=== PATIENT | female | born 1975 | race Hispanic/Latino ===

== ENCOUNTER 2019-02-05 20:57 | Emergency (ER) | payer SELFPAY ==
[2019-02-05] MEDS ORDERED: NA CHLORIDE 0.9% 1,000 ML ONE (22:52)
[2019-02-05 23:03] LABS: Absolute Lymphocytes (CBC) 1.4 K/uL (0.7-4.9); Basophils % 0.9 % (0-1.3); Hematocrit 40.7 % (36.0-45.0); Lymphocytes % 18.2 % (15.3-44.8); MPV 7.9 fL (7.6-11.3); RBC Red Blood Cell Count 4.68 M/uL (3.86-4.86)
[2019-02-05 23:54] LABS: ALT/SGPT 32 U/L (12-78); AST/SGOT 24 U/L (15-37); Albumin 3.3 g/dL (3.4-5.0); Alkaline Phosphatase 91 U/L (45-117); BUN Blood Urea Nitrogen 20 mg/dL (7-18); Bicarbonate 28 mmol/L (21-32); Bilirubin Direct 0.1 mg/dL (0-0.2); Bilirubin Total 0.3 mg/dL (0.2-1.0); Glucose Level 134 mg/dL (74-106); Lipase 44 U/L (73-393); Potassium 3.8 mmol/L (3.5-5.1); Protein, Total 6.9 g/dL (6.4-8.2); Sodium Level 145 mmol/L (136-145); Troponin I < 0.02 ng/mL (0.0-0.045)
[2019-02-06] MEDS ORDERED: AMLODIPINE 5 MG TAB ONE (00:34)
[2019-02-06] MEDS ORDERED: cloNIDine HCl 0.1 MG TAB ONE (00:34)
--- NOTE | 2019-02-06 01:40 | EDPHYS ---
Physician Documentation [facility] Name: Liliane Villatoro Age: 43 yrs Sex: Female : 1975 Arrival Date: 02/05/2019 Time: 21:01 Bed 18 Private MD: ED Physician Miguel Yip HPI: 02/05 22:10 This 43 yrs old Female presents to ER via Ambulatory with complaints of High cp Blood Pressure, Fever. 22:10 Onset: The symptoms/episode began/occurred today. cp 22:10 Associated signs and symptoms: Pertinent negatives: chest pain, dizziness, headache, cp lightheadedness, visual changes, vomiting, weakness. Severity of symptoms: in the emergency department the blood pressure is unchanged. Patient reports taking last dose of prescribed Losartan this morning. Historical: - Allergies: : No Known Allergies; ak1 - Home Meds: :23 losartan 100 mg oral tab 1 tab once daily [Active]; Metformin Oral [Active]; ak1 - PMHx: :23 Diabetes - IDDM; Hypertension; ak1 - Immunization history:: Adult Immunizations unknown. - Social history:: Smoking status: Patient/guardian denies using tobacco. - Ebola Screening: : No symptoms or risks identified at this time. ROS: 22:15 Constitutional: Negative for body aches, chills, fever, poor PO intake. cp 22:15 Eyes: Negative for injury, pain, redness, and discharge. cp 22:15 ENT: Negative for drainage from ear(s), ear pain, sore throat, difficulty swallowing, difficulty handling secretions. 22:15 Cardiovascular: Negative for chest pain, edema, palpitations. 22:15 Respiratory: Negative for cough, shortness of breath, wheezing. 22:15 Abdomen/GI: Positive for abdominal pain, Negative for nausea, vomiting, and diarrhea, constipation, anorexia, black/tarry stool, rectal bleeding. 22:15 Back: Negative for pain at rest, pain with movement, radiated pain. 22:15 : Negative for urinary symptoms, flank pain. 22:15 Skin: Negative for cellulitis, rash. 22:15 Neuro: Negative for altered mental status, dizziness, headache, syncope, weakness. 22:15 All other systems are negative. Exam: 22:20 Constitutional: The patient appears in no acute distress, alert, awake, comfortable, cp non-diaphoretic, non-toxic, well developed, well nourished. 22:20 Head/Face: Normocephalic, atraumatic. cp 22:20 Eyes: Periorbital structures: appear normal, Conjunctiva: normal, no exudate, no injection, Sclera: no appreciated abnormality, Lids and lashes: appear normal, bilaterally. 22:20 ENT: External ear(s): are unremarkable, Ear canal(s): are normal, clear, TM's: are normal, no evidence of bulging, no erythema, Nose: is normal, Mouth: Lips: moist, Oral mucosa: pink and intact, moist, Posterior pharynx: is normal, airway is patent, no erythema, no exudate. 22:20 Neck: ROM/movement: is normal, is supple, without pain, no range of motions limitations, no nuchal rigidity. 22:20 Chest/axilla: Inspection: normal, Palpation: is normal, no crepitus, no tenderness. 22:20 Cardiovascular: Rate: normal, Rhythm: regular, Edema: is not appreciated, JVD: is not appreciated. 22:20 Respiratory: the patient does not display signs of respiratory distress, Respirations: normal, no use of accessory muscles, no retractions, no splinting, no tachypnea, labored breathing, is not present, Breath sounds: are clear throughout, no decreased breath sounds, no stridor, no wheezing. 22:20 Back: pain, is absent, ROM is normal. 22:20 Skin: no rash present. 22:20 Neuro: Orientation: to person, place \T\ time. Mentation: is normal, Cerebellar function: is grossly normal, Motor: moves all fours, strength is normal, Sensation: is normal. 22:20 Abdomen/GI: Inspection: abdomen appears normal, Bowel sounds: active, all quadrants, cp Palpation: soft, in all quadrants, mild abdominal tenderness, in the epigastric area and left upper quadrant, rebound tenderness, is not appreciated, voluntary guarding, is not appreciated. 23:00 ECG was reviewed by the Attending Physician. cp Vital Signs: 21:23 BP 188 / 102; Pulse 81; Resp 16; Temp 97.6; Pulse Ox 100% on R/A; Weight 99.79 kg (R); ak1 Height 4 ft. 11 in. (149.86 cm) (R); Pain 3/10; 21:47 BP 187 / 71; Pulse 83; Resp 18; Pulse Ox 99% on R/A; lp1 22:30 BP 173 / 76; Pulse 79; Resp 14; Pulse Ox 100% on R/A; lp1 23:30 BP 187 / 77; Pulse 76; Resp 14; Pulse Ox 100% on R/A; lp1 02/06 00:07 BP 206 / 68; Pulse 75; Resp 20; Pulse Ox 100% on R/A; lp1 00:45 BP 186 / 83; Pulse 80; Resp 14; Pulse Ox 100% on R/A; lp1 01:30 BP 123 / 59; Pulse 67; Resp 17; Pulse Ox 99% on R/A; lp1 01:59 BP 107 / 54; Pulse 65; Resp 14; Pulse Ox 100% on R/A; Pain 0/10; lp1 02/05 21:23 Body Mass Index 44.43 (99.79 kg, 149.86 cm) ak1 MDM: 02/05 21:53 Patient medically screened. rishi 22:15 Differential diagnosis: hypertensive crisis, Malignant HTN, CVA, intracerebral cp hemorrhage, cardiac arrythmia. 02/06 01:38 Data reviewed: vital signs, nurses notes, lab test result(s), EKG, radiologic studies, cp ultrasound. 01:38 Test interpretation: by ED physician or midlevel provider: ECG. Counseling: I had a cp detailed discussion with the patient and/or guardian regarding: the historical points, exam findings, and any diagnostic results supporting the discharge/admit diagnosis, the presence of at least one elevated blood pressure reading (>120/80) during this emergency department visit, lab results, radiology results, the need for outpatient follow up, a family practitioner, to return to the emergency department if symptoms worsen or persist or if there are any questions or concerns that arise at home. Response to treatment: the patient's symptoms have markedly improved after treatment, VSS. Blood pressure improved. Will discharge to home for continued monitoring. Special discussion: I have referred the patient to see his PCP for further evaluation of high blood pressure. 02/05 21:49 Order name: Urine Dipstick--Ancillary (enter results); Complete Time: 00:15 cm6 02/05 21:49 Order name: Urine --Ancillary (enter results); Complete Time: 00:15 cm6 02/05 22:05 Order name: Basic Metabolic Panel; Complete Time: 00:17 cp 02/06 00:17 Interpretation: Normal except: CL 112; GLUC 134; BUN 20; GFR 64. cp 02/05 22:05 Order name: CBC with Diff; Complete Time: 00:17 cp 02/05 22:05 Order name: Creatinine for Radiology; Complete Time: 00:17 cp 02/05 22:05 Order name: Hepatic Function; Complete Time: 00:17 cp 02/05 21:48 Order name: Urine Dipstick-Ancillary (obtain specimen); Complete Time: 21:48 cm6 02/05 22:05 Order name: Lipase; Complete Time: 00:17 cp 02/05 22:05 Order name: US Abdomen Limited: RUQ/epigastric pain; Complete Time: 00:15 cp 02/05 22:05 Order name: EKG; Complete Time: 22:06 cp 02/05 22:05 Order name: Troponin I; Complete Time: 00:17 cp 02/05 21:48 Order name: Urine Test (obtain specimen); Complete Time: 21:48 cm6 02/05 22:05 Order name: IV Saline Lock; Complete Time: 22:35 cp 02/05 22:05 Order name: Labs collected and sent; Complete Time: 22:34 cp 02/05 22:05 Order name: NPO; Complete Time: 22:23 cp 02/05 22:05 Order name: EKG - Nurse/Tech; Complete Time: 22:51 cp EC/21 23:00 Rate is 72 beats/min. Rhythm is regular. MI interval is normal. QRS interval is normal. cp QT interval is normal. Interpreted by me. Reviewed by me. Administered Medications: 23:04 Drug: NS 0.9% 1000 ml Route: IV; Rate: 1 bolus; Site: right antecubital; lp1 02/06 00:38 Follow up: IV Status: Completed infusion; IV Intake: 1000ml lp1 00:38 Drug: cloNIDine 0.2 mg Route: PO; lp1 02:00 Follow up: Response: Marked relief of symptoms lp1 00:38 Drug: Norvasc 5 mg Route: PO; lp1 02:00 Follow up: Response: Marked relief of symptoms lp1 Disposition: 07:43 Co-signature as Attending Physician, Miguel Yip MD I agree with the assessment and rishi plan of care. Disposition: 02/06/19 01:39 Discharged to Home. Impression: Hypertensive heart disease. - Condition is Stable. - Discharge Instructions: How to Take Your Blood Pressure, [id number], Managing Your Hypertension. - Prescriptions for losartan 100 mg Oral tablet - take 1 tablet by ORAL route once daily; 30 tablet. Norvasc 5 mg Oral Tablet - take 1 tablet by ORAL route once daily; 30 tablet. - Medication Reconciliation Form, Thank You Letter, Antibiotic Education, Prescription Opioid Use form. - Follow up: Private Physician; When: 2 - 3 days; Reason: Recheck today's complaints. - Problem is chronic. - Symptoms have improved. Signatures: Dispatcher [employer] EDMS Miguel Yip MD MD cha Pena, Laura, RN RN lp1 Tabitha Pack RN RN ak1 Miguel Pat PA PA Angela Nayak cm6 Corrections: (The following items were deleted from the chart) 02:00 01:39 02/06/2019 01:39 Discharged to Home. Impression: Hypertensive heart disease. lp1 Condition is Stable. Forms are Medication Reconciliation Form, Thank You Letter, Antibiotic Education, Prescription Opioid Use. Follow up: Private Physician; When: 2 - 3 days; Reason: Recheck today's complaints. Problem is chronic. Symptoms have improved. cp 02/07 00:21 02/05 22:20 Abdomen/GI: Inspection: abdomen appears normal, Bowel sounds: active, all cp quadrants, Palpation: abdomen is soft and non-tender, in all quadrants, cp
--- NOTE | 2019-02-06 01:40 | ER ---
Nurse's Notes [facility] Name: Liliane Villatoro Age: 43 yrs Sex: Female : 1975 Arrival Date: 02/05/2019 Time: 21:01 Bed 18 Private MD: Diagnosis: Hypertensive heart disease Presentation: 02/05 21:21 Presenting complaint: Patient states: out of BP meds, took last one this morning. pt ak1 stated fever since today. pt c/o abd pain and swelling X1 week. Transition of care: patient was not received from another setting of care. Onset of symptoms is unknown. Risk Assessment: Do you want to hurt yourself or someone else? Patient reports no desire to harm self or others. Initial Sepsis Screen: Does the patient meet any 2 criteria? No. Patient's initial sepsis screen is negative. Does the patient have a suspected source of infection? No. Patient's initial sepsis screen is negative. Care prior to arrival: None. 21:21 Method Of Arrival: Ambulatory ak1 21:21 Acuity: [place] 3 ak1 Triage Assessment: 21:23 General: Appears in no apparent distress. Behavior is cooperative. ak1 Historical: - Allergies: 21:23 No Known Allergies; ak1 - Home Meds: 21:23 losartan 100 mg oral tab 1 tab once daily [Active]; Metformin Oral [Active]; ak1 - PMHx: 21:23 Diabetes - IDDM; Hypertension; ak1 - Immunization history:: Adult Immunizations unknown. - Social history:: Smoking status: Patient/guardian denies using tobacco. - Ebola Screening: : No symptoms or risks identified at this time. Screenin:31 Abuse screen: Denies threats or abuse. Denies injuries from another. Nutritional lp1 screening: No deficits noted. Tuberculosis screening: No symptoms or risk factors identified. Fall Risk None identified. Assessment: 21:30 General: Appears in no apparent distress. Behavior is calm, cooperative, appropriate lp1 for age. Pain: Complains of pain in left upper quadrant Pain currently is 7 out of 10 on a pain scale. Quality of pain is described as sharp. Neuro: Level of Consciousness is awake, alert, obeys commands, Oriented to person, place, time, situation. Cardiovascular: Patient's skin is warm and dry. Respiratory: Respiratory effort is even, unlabored, Breath sounds are clear bilaterally. GI: Abdomen is non-distended, Bowel sounds present X 4 quads. Abdomen is tender to palpation in left upper quadrant Patient currently denies diarrhea, nausea, vomiting. : Denies burning with urination. EENT: No signs and/or symptoms were reported regarding the EENT system. Derm: Skin is pink, warm \T\ dry. Musculoskeletal: No deficits noted. 22:23 Reassessment: Ultrasound completed at bedside at this time. lp1 22:48 Reassessment: Patient aware of NPO status at this time. lp1 23:45 Reassessment: Patient appears in no apparent distress at this time. Patient ambulated lp1 to bathroom at this time. 02/06 01:30 Reassessment: Patient appears in no apparent distress at this time. Patient is alert, lp1 oriented x 3, equal unlabored respirations, skin warm/dry/pink. Patient states feeling better. Pain: Denies pain. Neuro: Gait is steady. Vital Signs: 02/05 21:23 BP 188 / 102; Pulse 81; Resp 16; Temp 97.6; Pulse Ox 100% on R/A; Weight 99.79 kg (R); ak1 Height 4 ft. 11 in. (149.86 cm) (R); Pain 3/10; 21:47 BP 187 / 71; Pulse 83; Resp 18; Pulse Ox 99% on R/A; lp1 22:30 BP 173 / 76; Pulse 79; Resp 14; Pulse Ox 100% on R/A; lp1 23:30 BP 187 / 77; Pulse 76; Resp 14; Pulse Ox 100% on R/A; lp1 02/06 00:07 BP 206 / 68; Pulse 75; Resp 20; Pulse Ox 100% on R/A; lp1 00:45 BP 186 / 83; Pulse 80; Resp 14; Pulse Ox 100% on R/A; lp1 01:30 BP 123 / 59; Pulse 67; Resp 17; Pulse Ox 99% on R/A; lp1 01:59 BP 107 / 54; Pulse 65; Resp 14; Pulse Ox 100% on R/A; Pain 0/10; lp1 02/05 21:23 Body Mass Index 44.43 (99.79 kg, 149.86 cm) [facility] ED Course: 02/05 21:01 Patient arrived in ED. es 21:22 Triage completed. ak1 21:23 Arm band placed on Patient placed in an exam room, on a stretcher, Patient notified of ak1 wait time. 21:29 Consuelo Hilliard, RN is Primary Nurse. lp1 21:32 Patient has correct armband on for positive identification. lp1 21:50 Miguel Pat PA is PHCP. cp 21:50 Miguel Yip MD is Attending Physician. cp 22:30 Inserted saline lock: 22 gauge in right antecubital area, using aseptic technique. lp1 Blood collected. 22:33 US Abdomen Limited: RUQ/epigastric pain In Process Unspecified. EDMS 02/06 00:08 No provider procedures requiring assistance completed. lp1 01:59 IV discontinued, bleeding controlled, No redness/swelling at site. Pressure dressing lp1 applied. Administered Medications: 02/05 23:04 Drug: NS 0.9% 1000 ml Route: IV; Rate: 1 bolus; Site: right antecubital; lp1 02/06 00:38 Follow up: IV Status: Completed infusion; IV Intake: 1000ml lp1 00:38 Drug: cloNIDine 0.2 mg Route: PO; lp1 02:00 Follow up: Response: Marked relief of symptoms lp1 00:38 Drug: Norvasc 5 mg Route: PO; lp1 02:00 Follow up: Response: Marked relief of symptoms lp1 Intake: 00:38 IV: 1000ml; Total: 1000ml. lp1 Outcome: 01:39 Discharge ordered by MD. cp 01:59 Discharged to home ambulatory, with family. lp1 01:59 Condition: good 01:59 Discharge instructions given to patient, Instructed on discharge instructions, follow up and referral plans. medication usage, Demonstrated understanding of instructions, follow-up care, medications, Prescriptions given X 2. 02:00 Patient left the ED. lp1 Signatures: Dispatcher [employer] EDOH Suzanna Brown Laura, RN RN lp1 Tabitha Pack RN RN ak1 Miguel Pat PA PA cp Corrections: (The following items were deleted from the chart) 02/05 21:24 21:21 Presenting complaint: Patient states: out of BP meds since October 2018. pt stated ak1 fever since today. pt c/o abd pain and swelling X1 week. ak1
[2019-02-06 02:09] VITALS: TEMP 97.6
[2019-02-06 02:17] VITALS: BP 107/54; O2SAT 100
[2019-02-06 03:42] LABS: Urine Blood TRACE (NEG); Urine Glucose NEGATIVE (NEG); Urine Protein NEGATIVE (NEG); Urine pH 6.5 (5.0-7.0)
--- NOTE | 2019-02-06 06:49 | RAD REPORT ---
EXAM DESCRIPTION: US - Abdomen Exam Limited - 02/05/2019 10:33 pm CLINICAL HISTORY: ABD PAIN COMPARISON: ABDOMINAL EXAM LIMITED dated 10/09/2013 FINDINGS: Patient was not fully fasting for the examination. Gallbladder is only partially filled. B evelia habitus also contributed to limited visualization. No gallstones, sludge or other abnormalities within the gallbladder lumen. There is no wall thickenin g or pericholecystic fluid. No common duct stone or biliary tree dilatation identified. IMPRESSION: Exam is considered limited. However, no gallbladder or biliary tree abnormality was iden tifiable.
--- NOTE | 2019-02-06 12:11 | EKG ---
Test Date: 2019-02-05 Test Time: 22:51:47 Scalping Machine Operator: RENNY MEASUREMENT RESULTS: Intervals: Rate: 72 NH: 144 QRSD: 84 QT: 420 QTc: 459 Worth: P: 48 NH: 144 QRS: 58 T: 79 INTERPRETIVE STATEMENTS: Normal sinus rhythm Nonspecific ST abnormality Abnormal ECG Compared to ECG 08/26/2015 19:48:45 ST (T wave) deviation now present Electronically Signed On 02-06-19 12:09:06 CDT by Nicolas Love
== END 2019-02-06 02:00 | disposition home or self-care (01) ==
LOC: ER 20:57
DX: I11.9 Hypertensive heart disease without heart failure (principal); E11.9 Type 2 diabetes mellitus without complications; I10 Essential (primary) hypertension
CPT/HCPCS: 36415; 76705; 80048; 80076; 81003; 81025; 83690; 84484; 85025; 93005; 96360; 96361; 99284; J7030

== ENCOUNTER 2020-07-13 09:14 | Emergency (ER) | payer SELFPAY ==
[2020-07-13] MEDS ORDERED: LIDOCAINE 1% MPF 5 ML VIAL ONE (09:59)
--- NOTE | 2020-07-13 10:16 | ER ---
Nurse's Notes [facility] Name: Liliane Villatoro Age: 45 yrs Sex: Female : 1975 Arrival Date: 07/13/2020 Time: 09:17 Bed 7 Private MD: Diagnosis: Cutaneous abscess of chest wall Presentation: 07/13 09:27 Chief complaint: Patient states: she had a sextuplet bypass surgery in Apr [address] [facility] and has had issues with her midsternal incision healing. Sister is currently packing her wound daily with prescription solution but has no more solution and they are having a difficult time getting her a new MD. Pt reports about 2 weeks ago an area noted on the top of her incision started growing like an abscess and wants to get it checked. Coronavirus screen: Client denies travel out of the [place] in the last 14 days. At this time, the client does not indicate any symptoms associated with coronavirus-19. Ebola Screen: No symptoms or risks identified at this time. Initial Sepsis Screen: Does the patient meet any 2 criteria? No. Patient's initial sepsis screen is negative. Does the patient have a suspected source of infection? No. Patient's initial sepsis screen is negative. Risk Assessment: Do you want to hurt yourself or someone else? Patient reports no desire to harm self or others. Onset of symptoms was June 2020. 09:27 Method Of Arrival: Ambulatory 09:27 Acuity: [place] 3 MANAGER HEMATOLOGY: 10:26 "never had 1 all her my life" ca1 Historical: - Allergies: : No Known Allergies; sv - PMHx: :31 Diabetes - IDDM; Hypertension; - PSHx: 09:31 Sextuplet bypass; sv - Immunization history:: Client reports receiving the 2nd dose of the Covid vaccine, Client reports receiving the 1st dose of the Covid vaccine. - Social history:: Smoking status: Patient denies any tobacco usage or history of. Screenin:20 Abuse screen: Denies threats or abuse. Denies injuries from another. Nutritional ca1 screening: No deficits noted. Tuberculosis screening: No symptoms or risk factors identified. Fall Risk None identified. Assessment: 09:20 General: Appears in no apparent distress. comfortable, Behavior is calm, cooperative, ca1 appropriate for age. Pain: Complains of pain in mid-sternal area. Neuro: Level of Consciousness is awake, alert, obeys commands, Oriented to person, place, time, situation. Derm: Skin is healthy with good turgor, Skin is pink, warm \\T\\ dry. Abscess located on mid-sternal area is quarter sized, has clear drainage, is raised. Musculoskeletal: Circulation, motion, and sensation intact. Capillary refill < 3 seconds. 10:18 Reassessment: Patient appears in no apparent distress at this time. Patient and/or ca1 family updated on plan of care and expected duration. Pain level reassessed. Patient is alert, oriented x 3, equal unlabored respirations, skin warm/dry/pink. Vital Signs: 09:27 BP 171 / 83; Pulse 89; Resp 16; Temp 98.9; Pulse Ox 100% ; Weight 77.56 kg; Height 4 sv ft. 11 in. (149.86 cm); 10:18 BP 145 / 78; Pulse 79; Resp 16 S; Pulse Ox 100% on R/A; ca1 09:27 Body Mass Index 34.54 (77.56 kg, 149.86 cm) sv ED Course: 09:17 Patient arrived in ED. rg4 09:18 Sebastien Sanford NP is PHCP. pm1 09:18 Carlyle Nath MD is Attending Physician. pm1 09:20 Patient has correct armband on for positive identification. Bed in low position. Call ca1 light in reach. Side rails up X 1. Pulse ox on. NIBP on. 09:27 Brook Whitt, ABNER is Primary Nurse. ca1 09:30 Triage completed. sv 09:31 Arm band placed on. sv 09:59 Wound Culture Sent. ca1 09:59 Assist provider with I \\T\\ D: of an abscess on upper sternal region Set up I\\T\\D tray. ca 1 Performed by Sebastien Sanford NP Culture sent to lab. Wound packed. iodoform gauze, Dressing with 4X4s, tape Patient tolerated well. 10:17 Felix Perrin MD is Referral Physician. pm1 10:25 Patient did not have IV access during this emergency room visit. ca1 Administered Medications: 09:59 Drug: Lidocaine (1 %) 5 ml {Note: by WIN Crowe.} Volume: 5 ml; Route: Infiltration; ca1 Outcome: 10:16 Discharge ordered by . pm1 10:25 Discharged to home ambulatory. ca1 10:25 Condition: improved 10:25 Discharge instructions given to patient, Instructed on discharge instructions, follow up and referral plans. medication usage, wound care, Demonstrated understanding of instructions, follow-up care, medications, wound care, Prescriptions given X 1. 10:26 Patient left the ED. ca1 Addendum: 07/16/2020 18:50 Addendum: Culture Results: Positive wound culture. Phone call Attempt #1 No answer. Not s s a working number. Signatures: Vicki Silverman, RN RN sv Jennifer Pollock RN RN ss Sebastien Sanford, RADAR OPERATOR RADAR OPERATOR pm1 Radhika Garcia rg4 Brook Whitt RN RN ca1
--- NOTE | 2020-07-13 10:16 | EDPHYS ---
Physician Documentation [facility] Name: Liliane Villatoro Age: 45 yrs Sex: Female : 1975 Arrival Date: 07/13/2020 Time: 09:17 Bed 7 Private MD: ED Physician Carlyle Nath HPI: 07/13 10:05 This 45 yrs old Female presents to ER via Ambulatory with complaints of pm1 Abscess. 10:05 The patient presents with an abscess of the mid-sternal area. Description: The affected pm1 area is approximately 2 cm(s), circular, draining, raised. Onset: The symptoms/episode began/occurred 2 week(s) ago. Possible cause(s): unknown. Associated signs and symptoms: Pertinent negatives: fever, pain. Modifying factors: the symptoms are alleviated by nothing, the symptoms are aggravated by nothing. Severity of symptoms: in the emergency department the symptoms are actually worse. The patient has not recently seen a physician, Just moved to the area. Patient has been contacting wound care but has not been able to establish an appointment. 10:05 Patient with bypass x 6 in April. Reports surgical chest scar was healing well until pm1 dehiscence at the distal aspect of the scar that has lead to chronic wound for 2 months. That is not the patient's current complaint. For the past two week she has had an abscess forming that is draining clear fluid at the proximal aspect of the scar. No fevers, chest pain, or shortness of breath. 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 - Social history:: Smoking status: Patient denies any tobacco usage or history of. ROS: 10:05 Constitutional: Negative for fever, chills, and weight loss. pm1 10:05 Cardiovascular: Negative for chest pain, palpitations, and edema, Respiratory: Negative for shortness of breath, cough, wheezing, and pleuritic chest pain, Abdomen/GI: Negative for abdominal pain, nausea, vomiting, diarrhea, and constipation, MS/Extremity: Negative for injury and deformity, Neuro: Negative for headache, weakness, numbness, tingling, and seizure. 10:05 Skin: Positive for abscess, of the mid-sternal area. Exam: 07/12 10:05 Constitutional: This is a well developed, well nourished patient who is awake, alert, pm1 and in no acute distress. Head/Face: Normocephalic, atraumatic. Chest/axilla: Inspection: abscess, that is small, of the mid-sternal area cellulitis, is not appreciated, chronic wound present to distal aspect of scar without any signs of cellulitis or abscess. Cardiovascular: Exam negative for acute changes, Rate: normal, Rhythm: regular, Pulses: no pulse deficits are appreciated, Edema: is not appreciated. Respiratory: Exam negative for acute changes, respiratory distress, shortness of breath. Skin: Appearance: normal except for affected area, as noted on chest examination. Neuro: Exam negative for acute changes, Orientation: is normal, Mentation: is normal, Motor: is normal, moves all fours. Vital Signs: 07/13 09:27 BP 171 / 83; Pulse 89; Resp 16; Temp 98.9; Pulse Ox 100% ; Weight 77.56 kg; Height 4 sv ft. 11 in. (149.86 cm); 10:18 BP 145 / 78; Pulse 79; Resp 16 S; Pulse Ox 100% on R/A; ca1 09:27 Body Mass Index 34.54 (77.56 kg, 149.86 cm) sv Procedures: 10:05 I \\T\\ D: Incision and drainage was performed for an abscess of the mid-sternal area pm1 Prepped with Betadine, Anesthetized with 2 ml's 1% Lidocaine. Incised with #11 blade. Drained small amount Clear Cultures obtained. Abscess cavity explored. Packed with iodoform gauze, Dressing: sterile 4x4 gauze, the patient tolerated the procedure well. MDM: 09:22 Patient medically screened. pm1 10:05 Data reviewed: vital signs. Data interpreted: Pulse oximetry: on room air is 100 %. pm1 Interpretation: normal. Counseling: I had a detailed discussion with the patient and/or guardian regarding: the historical points, exam findings, and any diagnostic results supporting the discharge/admit diagnosis, the need for outpatient follow up, for definitive care, a family practitioner, wound care center, to return to the emergency department if symptoms worsen or persist or if there are any questions or concerns that arise at home. 07/13 09:38 Order name: Wound Culture pm1 07/13 09:34 Order name: Incision \\T\\ Drainage Setup; Complete Time: 09:39 pm1 Administered Medications: 09:59 Drug: Lidocaine (1 %) 5 ml {Note: by WIN Crowe.} Volume: 5 ml; Route: Infiltration; ca1 Disposition: 10:42 Co-signature as Attending Physician, Carlyle Nath MD. rn Disposition: 07/13/20 10:16 Discharged to Home. Impression: Cutaneous abscess of chest wall. - Condition is Stable. - Discharge Instructions: Skin Abscess, Incision and Drainage. - Prescriptions for Doxycycline Hyclate 100 mg Oral Tablet - take 1 tablet by ORAL route every 12 hours; 20 tablet. - Medication Reconciliation Form, Thank You Letter, Antibiotic Education, Prescription Opioid Use form. - Follow up: Emergency Department; When: As needed; Reason: Worsening of condition. Follow up: Private Physician; When: 2 - 3 days; Reason: Recheck today's complaints, Continuance of care, Re-evaluation by your physician. Follow up: Felix Perrin MD; When: 2 - 3 days; Reason: Recheck today's complaints, Continuance of care, Re-evaluation by your physician. - Problem is new. - Symptoms have improved. Signatures: Dispatcher [employer] Vicki Woodall RN RN Carlyle Nath MD MD rn Marinas, Patrick, NP [employer] OPERATOR pm1 Brook Whitt RN RN ca1 Corrections: (The following items were deleted from the chart) 10:18 10:16 07/13/2020 10:16 Discharged to Home. Impression: Cutaneous abscess of chest wall. pm1 Condition is Stable. Forms are Medication Reconciliation Form, Thank You Letter, Antibiotic Education, Prescription Opioid Use. Follow up: Emergency Department; When: As needed; Reason: Worsening of condition. Follow up: Private Physician; When: 2 - 3 days; Reason: Recheck today's complaints, Continuance of care, Re-evaluation by your physician. Problem is new. Symptoms have improved. pm1 10:26 10:18 07/13/2020 10:16 Discharged to Home. Impression: Cutaneous abscess of chest wall. ca1 Condition is Stable. Discharge Instructions: Skin Abscess, Incision and Drainage. Prescriptions for Doxycycline Hyclate 100 mg Oral Tablet - take 1 tablet by ORAL route every 12 hours; 20 tablet. and Forms are Medication Reconciliation Form, Thank You Letter, Antibiotic Education, Prescription Opioid Use. Follow up: Emergency Department; When: As needed; Reason: Worsening of condition. Follow up: Private Physician; When: 2 - 3 days; Reason: Recheck today's complaints, Continuance of care, Re-evaluation by your physician. Follow up: Felix Perrin; When: 2 - 3 days; Reason: Recheck today's complaints, Continuance of care, Re-evaluation by your physician. Problem is new. Symptoms have improved. pm1
[2020-07-13 10:31] VITALS: TEMP 98.9; O2SAT 100
[2020-07-13 10:32] VITALS: BP 145/78
== END 2020-07-13 10:26 | disposition home or self-care (01) ==
LOC: ER 09:14
PROC: 0J960ZZ Drainage of Chest Subcutaneous Tissue and Fascia, Open Approach (ICD-10-PCS; principal; 2020-07-13)
DX: L02.213 Cutaneous abscess of chest wall (principal); I10 Essential (primary) hypertension; Z95.1 Presence of aortocoronary bypass graft
CPT/HCPCS: 87070; 87077; 87186; 87205; 99284

== ENCOUNTER 2020-08-13 12:50 | Emergency (ER) | payer SELFPAY ==
[2020-08-13 13:11] LABS: Absolute Lymphocytes (CBC) 1.1 K/uL (0.7-4.9); Basophils % 0.4 % (0-1.3); Hematocrit 28.7 % (36.0-45.0); Lymphocytes % 8.6 % (15.3-44.8); MPV 7.2 fL (7.6-11.3); RBC Red Blood Cell Count 3.52 M/uL (3.86-4.86)
[2020-08-13 13:18] LABS: Protime INR 1.4
[2020-08-13 13:32] LABS: ALT/SGPT 13 U/L (12-78); AST/SGOT 8 U/L (15-37); Alkaline Phosphatase 106 U/L (45-117); BUN Blood Urea Nitrogen 15 mg/dL (7-18); Bicarbonate 25 mmol/L (21-32); Bilirubin Direct 0.3 mg/dL (0-0.2); Bilirubin Total 0.9 mg/dL (0.2-1.0); Glucose Level 205 mg/dL (74-106); Magnesium 2.2 mg/dL (1.8-2.4); NT PRO-BNP 1605 pg/mL (<125); Potassium 4.2 mmol/L (3.5-5.1); Protein, Total 8.3 g/dL (6.4-8.2); Sodium Level 134 mmol/L (136-145); Troponin (Emerg Dept Use Only) < 0.02 ng/mL (0.0-0.045)
--- NOTE | 2020-08-13 14:00 | RAD REPORT ---
EXAM DESCRIPTION: RAD - Chest Single View - 08/13/2020 1:51 pm CLINICAL HISTORY: CHEST PAIN Chest pain. COMPARISON: Chest Single View dated 08/26/2015; CHEST PA AND LAT 2 VIEW dated 05/24/2010 FINDINGS: Portable technique limits examination quality. The lungs are grossly clear. The heart is normal in size. No displaced fractures.Sternotomy wires. IMPRESSION: No acute intrathoracic process suspected.
[2020-08-13] MEDS ORDERED: CLOPIDOGREL 75 MG TABLET ONE (14:04)
[2020-08-13] MEDS ORDERED: ASPIRIN 81 MG CHEWABLE TABLET ONE (14:04)
--- NOTE | 2020-08-13 14:30 | EDPHYS ---
Physician Documentation [facility] Name: Liliane Villatoro Age: 45 yrs Sex: Female : 1975 Arrival Date: 08/13/2020 Time: 12:55 Bed 2 Private MD: ED Physician Girish Jules HPI: 08/13 13:40 This 45 yrs old Female presents to ER via EMS with complaints of Chest Pain. jr8 13:40 The patient or guardian reports chest pain that is located primarily in the anterior jr8 chest wall, left. Onset: acutely. The pain radiates to the left arm. Associated signs and symptoms: The patient has no apparent associated signs or symptoms. The chest pain is described as sharp. Duration: The patient or guardian reports multiple episodes, that are intermittent. Modifying factors: The symptoms are alleviated by nothing. the symptoms are aggravated by movement, palpation of area. Severity of pain: At its worst the pain was moderate in the emergency department the pain is unchanged. The patient has not experienced similar symptoms in the past. The patient has not recently seen a physician. Patient stated that she had sextuplet bypass about 3 months ago. Has been recovering from procedure well thus far. Stated that she now is having sharp chest pain to upper left chest region that is reproducible with palpation and movement of arm. Did not know if she strained herself or not. Has not been compliant with her cardiac meds. Historical: - Allergies: 12:57 No Known Allergies; sv - Home Meds: 13:12 Metformin Oral [Active]; losartan 100 mg Oral tab 1 tab once daily [Active]; vg1 - PMHx: 12:57 Diabetes - IDDM; Hypertension; sv - PSHx: 12:57 Sextuplet bypass; sv - Immunization history:: Adult Immunizations up to date, Client reports receiving the 2nd dose of the Covid vaccine. - Social history:: Smoking status: Patient/guardian denies using tobacco. ROS: 13:40 Eyes: Negative for injury, pain, redness, and discharge, ENT: Negative for injury, jr8 pain, and discharge, Neck: Negative for injury, pain, and swelling, Respiratory: Negative for shortness of breath, cough, wheezing, and pleuritic chest pain, Abdomen/GI: Negative for abdominal pain, nausea, vomiting, diarrhea, and constipation, Back: Negative for injury and pain, MS/Extremity: Negative for injury and deformity, Skin: Negative for injury, rash, and discoloration, Neuro: Negative for headache, weakness, numbness, tingling, and seizure. 13:40 Cardiovascular: Positive for chest pain, with movement, Negative for edema, orthopnea, palpitations, paroxysmal nocturnal dyspnea. Exam: 13:40 Constitutional: This is a well developed, well nourished patient who is awake, alert, jr8 and in no acute distress. Cardiovascular: Regular rate and rhythm with a normal S1 and S2. No gallops, murmurs, or rubs. Normal PMI, no JVD. No pulse deficits. Respiratory: Lungs have equal breath sounds bilaterally, clear to auscultation and percussion. No rales, rhonchi or wheezes noted. No increased work of breathing, no retractions or nasal flaring. Abdomen/GI: Soft, non-tender, with normal bowel sounds. No distension or tympany. No guarding or rebound. No evidence of tenderness throughout. Skin: Warm, dry with normal turgor. Normal color with no rashes, no lesions, and no evidence of cellulitis. MS/ Extremity: Pulses equal, no cyanosis. Neurovascular intact. Full, normal range of motion. Neuro: Awake and alert, GCS 15, oriented to person, place, time, and situation. Cranial nerves II-XII grossly intact. Motor strength 5/5 in all extremities. Sensory grossly intact. Cerebellar exam normal. Normal gait. 13:40 Chest/axilla: Inspection: mid sternal scar noted. Healing well and without erythema, Palpation: tenderness, that is moderate, of the anterior aspect of left upper chest, that totally reproduces the patient's complaints. Vital Signs: 13:08 BP 169 / 97; Pulse 96; Resp 18; Temp 98.1(O); Pulse Ox 100% on R/A; Weight 72.57 kg; vg1 Height 4 ft. 11 in. (149.86 cm); Pain 10/10; 14:06 BP 150 / 74; Pulse 94; Resp 20; Pulse Ox 100% ; sv 14:56 BP 129 / 67; Pulse 80; Resp 16; Pulse Ox 100% on R/A; vg1 13:08 Body Mass Index 32.32 (72.57 kg, 149.86 cm) vg1 MDM: 13:06 Patient medically screened. jr8 14:30 Data reviewed: vital signs, nurses notes, lab test result(s), EKG, radiologic studies, jr8 plain films. Data interpreted: Pulse oximetry: on room air is 100 %. Interpretation: normal. Counseling: I had a detailed discussion with the patient and/or guardian regarding: the historical points, exam findings, and any diagnostic results supporting the discharge/admit diagnosis, lab results, radiology results, the need for outpatient follow up, a counter supervisor, a family practitioner, to return to the emergency department if symptoms worsen or persist or if there are any questions or concerns that arise at home. 08/13 12:56 Order name: Basic Metabolic Panel; Complete Time: 13:43 sv 08/13 12:56 Order name: CBC with Diff; Complete Time: 13:08/13 12:56 Order name: LFT's; Complete Time: 13:43 08/13 12:56 Order name: Magnesium; Complete Time: 13:08/13 12:56 Order name: NT PRO-BNP; Complete Time: 13:43 08/13 12:56 Order name: PT-INR; Complete Time: 13:43 sv 08/13 12:56 Order name: Troponin (emerg Dept Use Only); Complete Time: 13:43 08/13 12:56 Order name: XRAY Chest (1 view); Complete Time: 14:12 08/13 12:56 Order name: EKG; Complete Time: 12:56 sv 08/13 12:56 Order name: Cardiac monitoring; Complete Time: 12:56 08/13 12:56 Order name: EKG - Nurse/Tech; Complete Time: 12:56 sv 08/13 12:56 Order name: IV Saline Lock; Complete Time: 13:08/13 12:56 Order name: Labs collected and sent; Complete Time: 13:08/13 12:56 Order name: O2 Per Protocol; Complete Time: 12:56 08/13 12:56 Order name: O2 Sat Monitoring; Complete Time: 12:56 sv Administered Medications: 13:48 Drug: Aspirin 81 mg Route: PO; vg1 14:56 Follow up: Response: No adverse reaction vg1 13:48 Drug: PlaVIX (clopidogrel) 75 mg Route: PO; vg1 14:56 Follow up: Response: No adverse reaction vg1 Disposition: 08/14 06:23 Co-signature as Attending Physician, Girish Jules MD I agree with the assessment and kdr plan of care. Disposition: 08/13/20 14:29 Discharged to Home. Impression: Other chest pain. - Condition is Stable. - Discharge Instructions: Chest Wall Pain. - Medication Reconciliation Form, Thank You Letter, Antibiotic Education, Prescription Opioid Use, Work release form form. - Follow up: Private Physician; When: 2 - 3 days; Reason: Recheck today's complaints, Continuance of care, Re-evaluation by your physician. - Problem is new. - Symptoms have improved. Signatures: Dispatcher [employer] EDVicki Abdalla, RN RN Girish Nicholson MD MD kdr Roszak, Josh, PA PA jr8 Smitha Garcia RN RN vg1 Corrections: (The following items were deleted from the chart) 08/13 14:57 14:29 08/13/2020 14:29 Discharged to Home. Impression: Other chest pain. Condition is vg1 Stable. Forms are Medication Reconciliation Form, Thank You Letter, Antibiotic Education, Prescription Opioid Use. Follow up: Private Physician; When: 2 - 3 days; Reason: Recheck today's complaints, Continuance of care, Re-evaluation by your physician. Problem is new. Symptoms have improved. jr8
--- NOTE | 2020-08-13 14:30 | ER ---
Nurse's Notes [facility] Name: Liliane Villatoro Age: 45 yrs Sex: Female : 1975 Arrival Date: 08/13/2020 Time: 12:55 Bed 2 Private MD: Diagnosis: Other chest pain Presentation: 08/13 12:49 Chief complaint: EMS states: Pt had cardiac sx about 3 months ago in [place]. Two vg1 days ago pt c/o Chest pain on the left side under the clavical, rates pain 10/10, does not radiate to left arm. Pt states chest pain increases with deep inhalation. BS was 233. EMS also stated that pt stated is not compliant with medications. Coronavirus screen: Client denies travel out of the [place] in the last 14 days. Ebola Screen: Patient negative for fever greater than or equal to 101.5 degrees Fahrenheit, and additional compatible Ebola Virus Disease symptoms. 12:49 Initial Sepsis Screen: Does the patient meet any 2 criteria? No. Patient's initial vg1 sepsis screen is negative. Does the patient have a suspected source of infection? No. Patient's initial sepsis screen is negative. 12:57 Risk Assessment: Do you want to hurt yourself or someone else? Patient reports no sv desire to harm self or others. Onset of symptoms was August 13, 2020. 12:57 Method Of Arrival: EMS: [facility] sv 12:57 Acuity: [place] 2 sv Historical: - Allergies: 12:57 No Known Allergies; sv - Home Meds: 13:12 Metformin Oral [Active]; losartan 100 mg Oral tab 1 tab once daily [Active]; vg1 - PMHx: 12:57 Diabetes - IDDM; Hypertension; sv - PSHx: 12:57 Sextuplet bypass; sv - Immunization history:: Adult Immunizations up to date, Client reports receiving the 2nd dose of the Covid vaccine. - Social history:: Smoking status: Patient/guardian denies using tobacco. Screenin:57 Abuse screen: Denies threats or abuse. Denies injuries from another. Nutritional sv screening: No deficits noted. Tuberculosis screening: No symptoms or risk factors identified. Fall Risk None identified. Assessment: 12:50 General: Appears in no apparent distress. comfortable, Behavior is calm, cooperative. vg1 Pain: Complains of pain in anterior aspect of left upper chest Pain currently is 10 out of 10 on a pain scale. Quality of pain is described as sharp, Pain began 2-3 days ago. Neuro: Level of Consciousness is awake, alert, obeys commands, Oriented to person, place, time, situation. Neuro: Denies dizziness, headache. Cardiovascular: Patient's skin is warm and dry. Respiratory: Airway is patent Respiratory effort is even, unlabored. GI: Patient currently denies diarrhea, nausea, vomiting. : No signs and/or symptoms were reported regarding the genitourinary system. EENT: No signs and/or symptoms were reported regarding the EENT system. Derm: Skin is intact. Musculoskeletal: Circulation, motion, and sensation intact. 12:56 Reassessment: Received VO from Dr Jules for a cardiac workup. sv Vital Signs: 13:08 BP 169 / 97; Pulse 96; Resp 18; Temp 98.1(O); Pulse Ox 100% on R/A; Weight 72.57 kg; vg1 Height 4 ft. 11 in. (149.86 cm); Pain 10/10; 14:06 BP 150 / 74; Pulse 94; Resp 20; Pulse Ox 100% ; sv 14:56 BP 129 / 67; Pulse 80; Resp 16; Pulse Ox 100% on R/A; vg1 13:08 Body Mass Index 32.32 (72.57 kg, 149.86 cm) vg1 ED Course: 12:51 EKG done, by ED staff, reviewed by Girish Jules MD. ss 12:55 Patient arrived in ED. ss 12:57 Triage completed. sv 12:57 Arm band placed on. sv 12:57 Patient has correct armband on for positive identification. Placed in gown. Bed in low sv position. Call light in reach. Side rails up X2. cardiac monitor technician on. Pulse ox on. NIBP on. 13:05 John Caruso PA is PHCP. jr8 13:06 Girish Jules MD is Attending Physician. jr8 13:08 Smitha Garcia, ABNER is Primary Nurse. vg1 13:51 XRAY Chest (1 view) In Process Unspecified. EDMS 14:53 No provider procedures requiring assistance completed. IV discontinued, intact, vg1 bleeding controlled, No redness/swelling at site. Pressure dressing applied. Administered Medications: 13:48 Drug: Aspirin 81 mg Route: PO; vg1 14:56 Follow up: Response: No adverse reaction vg1 13:48 Drug: PlaVIX (clopidogrel) 75 mg Route: PO; vg1 14:56 Follow up: Response: No adverse reaction vg1 Outcome: 14:29 Discharge ordered by . sarai 14:54 Discharged to home ambulatory. vg1 14:54 Condition: stable 14:54 Discharge instructions given to patient, Instructed on discharge instructions, follow up and referral plans. Demonstrated understanding of instructions, follow-up care. 14:57 Patient left the ED. vg1 Signatures: Dispatcher [employer] Vicki Woodall RN RN Jennifer Abdi RN RN ss Roszak, Josh, PA PA jr8 Garcia, Victoria RN RN vg1
[2020-08-13 15:01] VITALS: TEMP 98.1; O2SAT 100
[2020-08-13 15:04] VITALS: BP 129/67
== END 2020-08-13 14:57 | disposition home or self-care (01) ==
LOC: ER 12:50
DX: R07.89 Other chest pain (principal); I10 Essential (primary) hypertension; E11.9 Type 2 diabetes mellitus without complications; Z95.1 Presence of aortocoronary bypass graft
CPT/HCPCS: 36415; 71045; 80048; 80076; 83735; 83880; 84484; 85025; 85610; 93005; 99284

== ENCOUNTER 2023-04-28 09:21 | Inpatient (IN) | payer SELFPAY ==
[2023-04-28] MEDS ORDERED: ASPIRIN 325 MG TAB ONE (09:55)
[2023-04-28] MEDS ORDERED: LABETALOL 20 MG/4ML SYRINGE IV ONE ×2 (09:55→10:50)
[2023-04-28 10:23] LABS: Bilirubin Direct 0.1 mg/dL (0-0.2); Bilirubin Indirect, Calculated 0.3 mg/dL (0.2-0.8); Bilirubin Total 0.4 mg/dL (0.2-1.0); Protein, Total 7.6 g/dL (6.4-8.2)
[2023-04-28 10:24] LABS: Potassium 4.7 mEq/L (3.5-5.1)
[2023-04-28 10:25] LABS: Troponin High Sensitivity 1594.8 pg/mL (<58.9)
--- NOTE | 2023-04-28 10:42 | ER ---
Nurse's Notes [facility] Name: Liliane Villatoro Age: 47 yrs Sex: Female : 1975 Arrival Date: 04/28/2023 Time: 09:21 Bed 8 Private MD: Diagnosis: NSTEMI, hypertensive urgency, chest pain Presentation: 04/28 09:24 Chief complaint: Patient states: chest pain x 1 week ago, worse last night. Pt reports aa5 being uncompliant with home medications due to "not being able to afford them". Pt reports open heart sx 3 yrs ago and drainage to site since then. 09:24 Method Of Arrival: Ambulatory aa5 09:24 Coronavirus screen: At this time, the client does not indicate any symptoms associated aa5 with coronavirus-19. Ebola Screen: Patient denies travel to an Ebola-affected area in the 21 days before illness onset. Initial Sepsis Screen: Does the patient meet any 2 criteria? No. Patient's initial sepsis screen is negative. Does the patient have a suspected source of infection? No. Patient's initial sepsis screen is negative. Risk Assessment: Do you want to hurt yourself or someone else? Patient reports no desire to harm self or others. Onset of symptoms was April 2023. 09:24 Acuity: [place] 2 aa5 Historical: - Allergies: 09:24 No Known Allergies; aa5 - PMHx: 09:24 Diabetes - IDDM; Hypertension; Myocardial infarction; kidney problem; liver problem; aa5 - PSHx: 09:24 Open heart sx; aa5 - Immunization history:: Adult Immunizations up to date, Adult Immunizations unknown. - Social history:: Smoking status: Patient/guardian denies using tobacco, the patient reports quitting approximately 3 years ago, Smoking status: Patient denies any tobacco usage or history of. Screenin:34 [facility] ED Fall Risk Assessment (Adult) History of falling in the last 3 months, ld1 including since admission No falls in past 3 months (0 pts). Abuse screen: Denies threats or abuse. Denies injuries from another. Nutritional screening: No deficits noted. Tuberculosis screening: No symptoms or risk factors identified. Assessment: 09:32 General: Appears in no apparent distress. comfortable, Behavior is calm, cooperative, ld1 appropriate for age. Pain: Complains of pain in chest Pain does not radiate. Pain currently is 8 out of 10 on a pain scale. Quality of pain is described as throbbing, Pain began gradually, Is continuous. Neuro: Level of Consciousness is awake, alert, obeys commands, Oriented to person, place, time, situation. Cardiovascular: Capillary refill < 3 seconds Patient's skin is warm and dry. Cardiovascular: Rhythm is sinus rhythm. Respiratory: Airway is patent Respiratory effort is even, unlabored. GI: Abdomen is round non-distended. : No signs and/or symptoms were reported regarding the genitourinary system. EENT: No signs and/or symptoms were reported regarding the EENT system. Derm: No signs and/or symptoms reported regarding the dermatologic system. Musculoskeletal: No signs and/or symptoms reported regarding the musculoskeletal system. Vital Signs: 09:24 BP 180 / 108; Pulse 76; Resp 18 S; Temp 98.5(O); Pulse Ox 100% on R/A; Weight 81.65 kg aa5 (R); Height 4 ft. 11 in. (R); 09:32 Pulse 74; Resp 16; Pulse Ox 100% ; Pain 8/10; ld1 09:52 BP 205 / 90; Pulse 70; Resp 16; Pulse Ox 99% ; ko1 10:39 BP 216 / 89; Pulse 66; Resp 15; Pulse Ox 99% ; ko1 11:00 BP 132 / 63; Pulse 66; Resp 15; Pulse Ox 99% ; ko1 11:30 BP 131 / 81; Pulse 63; Resp 15; Pulse Ox 99% ; ko1 12:00 BP 115 / 66; Pulse 64; Resp 15; Pulse Ox 100% ; ko1 12:58 BP 165 / 80; Pulse 64; Resp 16; Pulse Ox 97% ; ko1 09:24 Body Mass Index 36.36 (81.65 kg, 149.86 cm) aa5 09:32 Pain Scale: Adult ld1 ED Course: 09:23 Patient arrived in ED. mg5 09:24 Arm band placed on. aa5 09:27 Thuy Mora, ABNER is Primary Nurse. ko1 09:27 Basim Pardo MD is Attending Physician. sp3 09:34 Patient has correct armband on for positive identification. Placed in gown. Bed in low ld1 position. Call light in reach. Side rails up X2. conveyor monitor on. Pulse ox on. NIBP on. Door closed. Noise minimized. Warm blanket given. 09:34 No provider procedures requiring assistance completed. Patient maintains SpO2 ld1 saturation greater than 95% on room air. 09:35 Triage completed. aa5 09:52 XRAY Chest (1 view) In Process Unspecified. EDMS 09:53 Basic Metabolic Panel Sent. ko1 09:53 CBC with Diff Sent. ko1 09:53 LFT's Sent. ko1 09:53 Magnesium Sent. ko1 09:53 NT PRO-BNP Sent. ko1 09:53 PT-INR Sent. ko1 09:53 Troponin HS Sent. ko1 09:53 Inserted saline lock: 22 gauge in left forearm, using aseptic technique. Blood zm collected. 10:28 Notified ED physician of a critical lab result(s). Troponin 1594.8. aa5 10:41 Cyrus Hi is Hospitalizing Provider. sp3 12:27 CT Chest For PE Angio In Process Unspecified. EDMS 14:54 Provided Education on: admit. ko1 14:54 Patient admitted, IV remains in place. ko1 Administered Medications: 10:01 Drug: Aspirin PO 325 mg PO once Route: PO; ko1 10:02 Drug: Labetalol IV 10 mg IV at calculated rate once Route: IV; Rate: calculated rate; ko1 Site: left forearm; 10:36 CANCELLED (Changedd): nitroglycerin0.4 mg Sublingual once; every five minute if needed sp3 x3 11:00 Drug: Ondansetron IVP 4 mg IVP once; over 2 minutes Route: IVP; Site: left forearm; ko1 11:05 Drug: Labetalol IV 10 mg IV at calculated rate once Route: IV; Rate: calculated rate; ko1 Site: left forearm; 11:08 Drug: morphine IVP or IV 4 mg IVP once over 4 mins Route: IVP; Infused Over: 4 mins; ko1 Site: left forearm; 11:15 Drug: Nitro Drip 5 mcg/min - (Nitroglycerin IV 50 mg, D5W IV 250 ml) IV at 5 mcg/min ko1 See Administration Instructions; Recommended max rate 400 mcg/min; Titrate 5 to 20 mcg/min as often as every 5 minutes to achieve goal; Goal parameter SBP less than 160 bpm; Use low-sorbing IV tubing. Route: IV; Rate: 5 mcg/min; Site: left forearm; Medication: 09:34 VIS not applicable for this client. ld1 Outcome: 10:42 Decision to Hospitalize by Provider. sp3 14:54 Admitted to ICU accompanied by nurse, via wheelchair, room 1, on monitor, with chart, ko1 14:54 Condition: stable 14:54 Instructed on the need for admit, 15:10 Patient left the ED. ko1 Signatures: Dispatcher [employer] EDMS Lian Alvarenga RN RN aa5 Desiree Byrd RN RN ld1 Basim Pardo MD MD sp3 Gregoria Singletary Kathy, RN RN ko1 Sully Goyal mg5 Corrections: (The following items were deleted from the chart) 09:35 09:24 Chief complaint: Patient states: chest pain x 1 week ago, worse last night. Pt aa5 reports being uncompliant with home medications due to "not being able to afford them" aa5 09:37 09:24 Acuity: [place] 3 aa5 aa5
--- NOTE | 2023-04-28 10:42 | EDPHYS ---
Physician Documentation [facility] Name: Liliane Villatoro Age: 47 yrs Sex: Female : 1975 Arrival Date: 04/28/2023 Time: 09:21 Bed 8 Private MD: ED Physician Basim Pardo HPI: 04/28 09:41 This 47 yrs old Female presents to ER via Ambulatory with complaints of Chest sp3 Pain. 09:41 47-year-old female with extensive past medical and cardiac history including myocardial sp3 infarction status post CABG, diabetes, chronic renal insufficiency, hypertension who has been noncompliant with her medications since her procedures in [place] approximately 3 years ago and who is also had drainage from her's sternotomy for 3 years now presents to the ED here for 1 week history of increasing chest pain paroxysmal in nature. Patient states the pain is substernal and radiates superiorly to her neck and left shoulder. She denies any other symptoms including headache, neck pain, shortness of breath, back pain, extremity pain, epigastric pain, abdominal pain, nausea, vomiting, diarrhea, bleeding, rash, known sick contacts, travel history, drug use or recreational medication use, or any other signs or symptoms on ROS at this time.. Historical: - Allergies: 09:24 No Known Allergies; aa5 - PMHx: 09:24 Diabetes - IDDM; Hypertension; Myocardial infarction; kidney problem; liver problem; aa5 - PSHx: 09:24 Open heart sx; aa5 - Immunization history:: Adult Immunizations up to date, Adult Immunizations unknown. - Social history:: Smoking status: Patient/guardian denies using tobacco, the patient reports quitting approximately 3 years ago, Smoking status: Patient denies any tobacco usage or history of. ROS: 09:43 Constitutional: Negative for fever, chills, and weight loss, Eyes: Negative for injury, sp3 pain, redness, and discharge, ENT: Negative for injury, pain, and discharge, Neck: Negative for injury, pain, and swelling, Respiratory: Negative for shortness of breath, cough, wheezing, and pleuritic chest pain, Abdomen/GI: Negative for abdominal pain, nausea, vomiting, diarrhea, and constipation, Back: Negative for injury and pain, MS/Extremity: Negative for injury and deformity, Skin: Negative for injury, rash, and discoloration, Neuro: Negative for headache, weakness, numbness, tingling, and seizure, Psych: Negative for depression, anxiety, suicide ideation, homicidal ideation, and hallucinations, Allergy/Immunology: Negative for hives, rash, and allergies, Endocrine: Negative for neck swelling, polydipsia, polyuria, polyphagia, and marked weight changes, Hematologic/Lymphatic: Negative for swollen nodes, abnormal bleeding, and unusual bruising, 09:43 All other systems are negative, Exam: 09:43 Constitutional: This is a well developed, well nourished patient who is awake, alert, sp3 and in no acute distress. Head/Face: Normocephalic, atraumatic. Eyes: Pupils equal round and reactive to light, extra-ocular motions intact. Lids and lashes normal. Conjunctiva and sclera are non-icteric and not injected. Cornea within normal limits. Periorbital areas with no swelling, redness, or edema. ENT: Nares patent. No nasal discharge, no septal abnormalities noted. External auditory canals are clear. Oropharynx with no redness, swelling, or masses, exudates, or evidence of obstruction, uvula midline. Mucous membranes moist. Neck: Trachea midline, no thyromegaly or masses palpated, and no cervical lymphadenopathy. Supple, full range of motion without nuchal rigidity, or vertebral point tenderness. No Meningismus. Cardiovascular: Regular rate and rhythm with a normal S1 and S2. No gallops, murmurs, or rubs. Normal PMI, no JVD. No pulse deficits. Respiratory: Lungs have equal breath sounds bilaterally, clear to auscultation and percussion. No rales, rhonchi or wheezes noted. No increased work of breathing, no retractions or nasal flaring. Abdomen/GI: Soft, non-tender, with normal bowel sounds. No distension or tympany. No guarding or rebound. No evidence of tenderness throughout. Back: No spinal tenderness. No costovertebral tenderness. Full range of motion. Skin: Warm, dry with normal turgor. Normal color with no rashes, no lesions, and no evidence of cellulitis. MS/ Extremity: Pulses equal, no cyanosis. Neurovascular intact. Full, normal range of motion. Neuro: Awake and alert, GCS 15, oriented to person, place, time, and situation. Cranial nerves II-XII grossly intact. Motor strength 5/5 in all extremities. Sensory grossly intact. Cerebellar exam normal. Normal gait. Psych: Awake, alert, with orientation to person, place and time. Behavior, mood, and affect are within normal limits. 09:43 Chest/axilla: Lower part of sternotomy has a serosanguineous drainage.. 09:46 ECG was reviewed by the Attending Physician. EKG demonstrates normal sinus rhythm at 70 sp3 bpm with normal intervals, normal QRS, normal axis, nonspecific diffuse ST/T changes without evidence of acute ischemia. Vital Signs: 09:24 BP 180 / 108; Pulse 76; Resp 18 S; Temp 98.5(O); Pulse Ox 100% on R/A; Weight 81.65 kg aa5 (R); Height 4 ft. 11 in. (R); 09:32 Pulse 74; Resp 16; Pulse Ox 100% ; Pain 8/10; ld1 09:52 BP 205 / 90; Pulse 70; Resp 16; Pulse Ox 99% ; ko1 10:39 BP 216 / 89; Pulse 66; Resp 15; Pulse Ox 99% ; ko1 11:00 BP 132 / 63; Pulse 66; Resp 15; Pulse Ox 99% ; ko1 11:30 BP 131 / 81; Pulse 63; Resp 15; Pulse Ox 99% ; ko1 12:00 BP 115 / 66; Pulse 64; Resp 15; Pulse Ox 100% ; ko1 12:58 BP 165 / 80; Pulse 64; Resp 16; Pulse Ox 97% ; ko1 09:24 Body Mass Index 36.36 (81.65 kg, 149.86 cm) aa5 09:32 Pain Scale: Adult ld1 MDM: 09:30 Patient medically screened. sp3 09:44 Data reviewed: vital signs, nurses notes, old medical records, lab test result(s), EKG, sp3 radiologic studies. ED course: 47-year-old female with extensive past medical history and high risk cardiac history now presents with continued chest pain for 1 week. Will obtain cardiac workup including EKG, labs, imaging including CT scan of the chest on the PE protocol. Patient will be observed in the hospital and cardiology consulted as her heart score is in the high category. Will treat hypertension with labetalol any continued pain with further medications as indicated.. 10:40 ED course: Patient ruling in for NSTEMI. Labetalol and nitro drip started. Aspirin and sp3 morphine also given. Stat echo ordered as per cardiology request. Patient will be admitted to ICU.. 04/28 09:30 Order name: Basic Metabolic Panel; Complete Time: 10:29 3 04/28 09:30 Order name: CBC with Diff 3 04/28 09:30 Order name: LFT's; Complete Time: 10:29 3 04/28 09:30 Order name: Magnesium; Complete Time: 10:29 3 04/28 09:30 Order name: NT PRO-BNP; Complete Time: 10:29 3 04/28 09:30 Order name: PT-INR 3 04/28 09:30 Order name: Troponin HS; Complete Time: 10:29 3 04/28 10:34 Order name: Troponin High Sensitivity [facility] 04/28 12:07 Order name: Basic Metabolic Panel [facility] 04/28 12:07 Order name: CBC with Automated Diff [facility]IN 04/28 12:07 Order name: Lipid Profile [facility] 04/28 12:07 Order name: Lipid Profile [facility] 04/28 12:07 Order name: Troponin High Sensitivity [facility] 04/28 12:07 Order name: Troponin High Sensitivity [facility] 04/28 12:07 Order name: Troponin High Sensitivity [facility] 04/28 12:07 Order name: Troponin High Sensitivity [facility] 04/28 14:50 Order name: Glucose, Ancillary Testing [facility]IN 04/28 09:30 Order name: XRAY Chest (1 view) 3 04/28 09:44 Order name: CT Chest For PE Angio 3 04/28 10:34 Order name: Echo w/ Doppler 3 04/28 09:30 Order name: EKG; Complete Time: 09:30 3 04/28 12:07 Order name: CONS Physician Consult EDIN 04/28 09:30 Order name: Cardiac monitoring; Complete Time: 09:31 3 04/28 09:30 Order name: EKG - Nurse/Tech; Complete Time: 09:31 3 04/28 09:30 Order name: IV Saline Lock; Complete Time: 09:53 3 04/28 09:30 Order name: Labs collected and sent; Complete Time: 09:53 3 04/28 09:30 Order name: O2 Per Protocol; Complete Time: 09:31 3 04/28 09:30 Order name: O2 Sat Monitoring; Complete Time: 09:31 sp3 04/28 09:44 Order name: Recheck B/P; Complete Time: 09:52 sp3 04/28 10:13 Order name: Labs - recollect needed: please recollect blue and purple top; Complete em1 Time: 12:59 Administered Medications: 10:01 Drug: Aspirin PO 325 mg PO once Route: PO; ko1 10:02 Drug: Labetalol IV 10 mg IV at calculated rate once Route: IV; Rate: calculated rate; ko1 Site: left forearm; 10:36 CANCELLED (Changedd): nitroglycerin0.4 mg Sublingual once; every five minute if needed sp3 x3 11:00 Drug: Ondansetron IVP 4 mg IVP once; over 2 minutes Route: IVP; Site: left forearm; ko1 11:05 Drug: Labetalol IV 10 mg IV at calculated rate once Route: IV; Rate: calculated rate; ko1 Site: left forearm; 11:08 Drug: morphine IVP or IV 4 mg IVP once over 4 mins Route: IVP; Infused Over: 4 mins; ko1 Site: left forearm; 11:15 Drug: Nitro Drip 5 mcg/min - (Nitroglycerin IV 50 mg, D5W IV 250 ml) IV at 5 mcg/min ko1 See Administration Instructions; Recommended max rate 400 mcg/min; Titrate 5 to 20 mcg/min as often as every 5 minutes to achieve goal; Goal parameter SBP less than 160 bpm; Use low-sorbing IV tubing. Route: IV; Rate: 5 mcg/min; Site: left forearm; Disposition Summary: 04/28/23 10:42 Hospitalization Ordered Notes: Hospitalization Status: Inpatient Admission sp3 Provider: Cyrus Hi sp3 Condition: Stable sp3 Problem: an acute exacerbation sp3 Symptoms: have worsened sp3 Bed/Room Type: Standard sp3 Location: Intensive Care Unit(04/28/23 14:34) em1 Room Assignment: 1-(04/28/23 14:34) em1 Diagnosis - NSTEMI, hypertensive urgency, chest pain sp3 Forms: - Medication Reconciliation Form sp3 - SBAR form sp3 - Leadership Thank You Letter sp3 Signatures: Dispatcher [employer] Josh Reid em1 Lian Alvarenga RN RN aa5 Desiree Byrd RN RN ld1 Basim Pardo MD MD sp3 Shazia Guzman RN RN kb3 Thuy Mora RN RN ko1 Corrections: (The following items were deleted from the chart) 10:36 10:28 Nitroglycerin Sublingual 0.4 mg Sublingual once; every five minute if needed x3 sp3 ordered. sp3 10:43 10:37 Echo with Doppler ordered. EDMS EDMS 13:25 10:42 Intensive Care Unit sp3 kb3 13:25 10:42 sp3 kb3 14:34 13:25 [facility] ER HOLD kb3 em1 14:34 13:25 ERHOLD- kb3 em1
[2023-04-28] MEDS ORDERED: ONDANSETRON 4 MG/2 ML VIAL ONE (10:43)
[2023-04-28] MEDS ORDERED: MORPHINE 4 MG/ML SYR ONE (10:43)
[2023-04-28] MEDS ORDERED: NITROGLYCERIN/D5W 50 MG/250 ML BTL IV ONE (10:43)
[2023-04-28 11:44] LABS: Absolute Lymphocytes (CBC) 1.6 K/uL (0.7-4.9); Hematocrit 40.8 % (36.0-45.0); MCV 84.3 fL (80-100); MPV 7.3 fL (7.6-11.3); Platelets 347 thou/uL (152-406); RBC Red Blood Cell Count 4.84 M/uL (3.86-4.86)
[2023-04-28 11:52] LABS: Protime INR 1.1
[2023-04-28] MEDS: INSULIN REGULAR (HUMAN) 100 UNIT/ML SQ SCH ×3 (12:00→22:06)
[2023-04-28] MEDS ORDERED: NITROGLYCERIN/D5W 50 MG/250 ML BTL IV SCH ×3 (12:00→15:51)
--- NOTE | 2023-04-28 12:07 | RAD REPORT ---
EXAM DESCRIPTION: Vasiliy Single View04/28/2023 9:50 am CLINICAL HISTORY: Chest pain COMPARISON: 2020 FINDINGS: The lungs appear clear of acute infiltrate. The heart is probably upper limits normal siz e Postsurgical changes involve the chest. IMPRESSION: No acute abnormalities displayed
--- NOTE | 2023-04-28 12:42 | P.HP ---
Certification for Inpatient Patient admitted to: Observation With expected LOS: >2 Midnights Patient will require the following post-hospital care: None Practitioner: I am a practitioner with admitting privileges, knowledge of patient current condition, hospital course, and medical plan of care. Services: Services provided to patient in accordance with Admission requirements found in Title 42 Section 412.3 of the Code of Federal Regulations Patient History Date of Service: 04/28/23 Reason for admission: NSTEMI History of Present Illness: Liliane Quach is a 47-year-old female with past medical history of myocardial infarction status post 6 vessel CABG three years ago, diabetes mellitus- NIDDM, chronic renal insufficiency, hypertension who has been noncompliant with medication due to insurance issues and has presented to the ED with increasing chest pain for 1 week located substernal and radiating to the neck and left shoulder. On examination, her previous midline incision at inferior area has malodorous drainage and covered with a bandage. She reports not attending postoperative follow up visits and does not see the doctor regularly due to insurance issues. She stated that she should be on Plavix but has not taken it in several months. Initial blood pressure 180/108 now a nitroglycerin drip and s/p 2 doses of IV labetalol were given resulting with SBP 138 and HR 76, resp 18, Temp 98.5, Oxygen saturation 100% on RA. Laboratory evaluations Troponin 1594.8, BNP 1290, potassium 4.7, sodium 135, BUN/creatinine 14/1.12, GFR 61, s [place] glucose 318, no elevated white count. Dr. Fuentes consulted and requested no heparin drip at this time. Stat echo was performed pending results. On examination vitals are stable, she is alert and oriented in no acute distress. chest xray reports "The lungs appear clear of acute infiltrate. The heart is probably upper limits normal size. Postsurgical changes involve the chest. No acute abnormalities displayed." CTA chest reports "FINDINGS: A pulmonary embolus is not seen. A thoracic aortic aneurysm is not noted. A pleural effusion is not seen. A pericardial effusion is not seen. A lung consolidation is not present. Postsurgical changes involve the chest. Several wires for the median sternotomy are broken. An inferior right wire extends a couple centimeters into the anterior subcutaneous fat and is surrounded by inflammatory changes. An additional lower left wire also extends into the anterior subcutaneous fat several centimeters and also surrounded byinflammatory tissue. 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 Fragments are by 1 centimeter. 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 It abuts the anterior aspect of left brachiocephalic vein. Bony formation has occurred between the medial head of the left clavicle and left aspect of the manubrium forming a pseudo joint IMPRESSION: Negative for a pulmonary embolism" Liliane will be admitted to hospitalist service for further evaluation and treatment, Dr. Limon has been consulted, heparin gtt, nitroglycerin gtt, asa, and plavix have been started per his recommendations. Allergies No Known Allergies Allergy (Unverified 08/27/15 01:13) Home Medications: NK [No Home Meds] 04/28/23 - Family History Mother History Unknown: Yes -: Heart disease, Hypertension, Diabetes Review of Systems General: Weakness Respiratory: Cough, Shortness of Breath Cardiovascular: Chest Pain (radiated to neck and left shoulder) Musculoskeletal: Shoulder Pain (left), Other (neck pain) Physical Examination - Physical Exam General: Alert, Oriented x3, Mild distress HEENT: Atraumatic, Normocephalic, PERRLA Neck: Supple, 2+ carotid pulse no bruit, JVD not distended Respiratory: Clear to auscultation bilaterally, Normal air movement Cardiovascular: No edema, Normal pulses, Regular rate/rhythm, Normal S1 S2 Capillary refill: <2 Seconds Gastrointestinal: Normal bowel sounds, Soft and benign Musculoskeletal: No clubbing, No swelling, No contractures Integumentary: No rashes, No breakdown, No significant lesion Neurological: Normal speech, Normal strength at 5/5 x4 extr, Normal tone - Studies Laboratory Data (last 24 hrs) 04/28/23 04/28/23 04/28/23 11:37 11:37 09:50 WBC 6.90 Hgb 14.0 Hct 40.8 Plt Count 347 PT 12.1 INR 1.10 Sodium 135 L Potassium 4.7 BUN 14 Creatinine 1.12 H Glucose 318 H Magnesium 2.0 Total Bilirubin 0.4 AST 24 ALT 26 Alkaline Phosphatase 124 H Assessment and Plan - Plan Assessment and Plan NSTEMI in patient with 6 vessel coronary artery bypass graft 3 years ago Medication noncompliance due to insurance difficulties consult cardiology Heparin drip, nitroglycerin drip, aspirin, and Plavix started N.p.o. for procedure in the a.m. 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
--- NOTE | 2023-04-28 13:00 | RAD REPORT ---
EXAM DESCRIPTION: CT - Chest For Pe Angio - 04/28/2023 12:25 pm CLINICAL HISTORY: Chest pain COMPARISON: None. TECHNIQUE: Dynamically enhanced axial 3 mm thick images of the chest were obtained during administra tion of 100 mL Isovue 370 IV contrast. Coronal and oblique reconstruction images were generated and r eviewed. Exam utilizes a protocol for optimal evaluation of pulmonary arterial tree. Maximum intensity projections 3D imaging was utilized All CT scans are performed using dose optimization technique as appropriate and may include automated exposure control or mA/KV adjustment according to patient size. FINDINGS: A pulmonary embolus is not seen. A thoracic aortic aneurysm is not noted. A pleural effusion is not seen. A pericardial effusion is not seen. A lung consolidation is not present. Postsurgical changes involve the chest. Several wires for the median sternotomy are broken. An inferi or right wire extends a couple centimeters into the anterior subcutaneous fat and is surrounded by in flammatory changes. An additional lower left wire also extends into the anterior subcutaneous fat sev eral centimeters and also surrounded by inflammatory tissue. 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 Fragments are by 1 centimeter. 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 It abuts the anterior aspect of left brachiocephalic vein. Bony formation has occurred between the medial head of the left clavicle and left aspect of the manubrium forming a pseudo joint IMPRESSION: Negative for a pulmonary embolism.
[2023-04-28] MEDS ORDERED: ASPIRIN 81 MG CHEWABLE TABLET PO ONE (14:31)
[2023-04-28] MEDS: CLOPIDOGREL 75 MG TABLET PO SCH (14:32)
[2023-04-28] MEDS ORDERED: CLOPIDOGREL 75 MG TABLET ONE (14:38)
[2023-04-28] MEDS ORDERED: INSULIN REGULAR (HUMAN) 100 UNIT/ML ONE ×3 (14:41→22:03)
[2023-04-28] MEDS ORDERED: HEPARIN/D5W 25,000 UNIT/500 ML BAG IV SCH ×2 (15:00→16:00)
[2023-04-28 15:47] VITALS: BMI 38.4
[2023-04-28] MEDS ORDERED: INFLUENZA VACCINE (for 6+ mo) 0.5 ML DOSE IMVAC ONE (16:00)
[2023-04-28] MEDS ORDERED: HEPARIN/D5W 25,000 UNIT/500 ML BAG IV ONE (17:15)
[2023-04-28 17:22] LABS: Absolute Lymphocytes (CBC) 1.4 K/uL (0.7-4.9); Hematocrit 42.9 % (36.0-45.0); Lymphocytes % 21.4 % (15.3-44.8); MCV 84.8 fL (80-100); MPV 7.3 fL (7.6-11.3); Platelets 351 thou/uL (152-406); RBC Red Blood Cell Count 5.05 M/uL (3.86-4.86)
[2023-04-28 17:29] LABS: Potassium 3.9 mEq/L (3.5-5.1)
[2023-04-28 17:45] LABS: Troponin High Sensitivity 5199.1 pg/mL (<58.9)
[2023-04-28] MEDS ORDERED: HEPARIN 5000 UNIT/ML 1 ML VIAL IV ONE (18:00)
--- NOTE | 2023-04-28 19:00 | P.CNS ---
Date of Consult: 04/28/23 Reason for Consult: Chest pain, non-STEMI Chief Complaint: NSTEMI History of Present Illness: This is a very pleasant 47-year-old female with past medical history of coronary disease is post CABG 3 years ago is here with chest pain. She has been having on and off chest pain for a week left-sided so she came into the ER. Patient EKG did not show STEMI, initial troponin was 1500 then went down to 1300 and up to 5000 and cardiology was consulted. Patient has chronic sternal wound that has been draining since surgery. The wound is not new and actually has been going on since her surgery. Patient denies any fevers or chills. Allergies No Known Allergies Allergy (Unverified 08/27/15 01:13) Home Medications: NK [No Home Meds] 04/28/23 - Past Medical/Surgical History Diabetic: Yes -: CABG 3 yrs ago. -: HTN -: Highcholesterol -: Chronic kidney issues -: liver problems -: no menstrual cycle -: CABG 3 years ago. - Family History Mother History Unknown: Yes Medical History: Heart disease, Hypertension, Diabetes - Social History Alcohol use: No CD- Drugs: No Caffeine use: Yes Place of Residence: Home Review of Systems 10-point ROS is otherwise unremarkable Physical Examination Temp Pulse Resp BP Pulse Ox 97.8 F 57 16 116/57 L 98 04/28/23 16:00 04/28/23 18:00 04/28/23 18:00 04/28/23 18:00 04/28/23 18:00 General: Oriented x3 HEENT: Atraumatic Neck: Supple Respiratory: Clear to auscultation bilaterally Cardiovascular: No edema Neurological: Normal speech, Normal affect Laboratory Data (last 24 hrs) 04/28/23 04/28/23 04/28/23 11:37 11:37 09:50 WBC 6.90 Hgb 14.0 Hct 40.8 Plt Count 347 PT 12.1 INR 1.10 Sodium 135 L Potassium 4.7 BUN 14 Creatinine 1.12 H Glucose 318 H Magnesium 2.0 Total Bilirubin 0.4 AST 24 ALT 26 Alkaline Phosphatase 124 H Conclusions/Impression: 1. Non-STEMI: Patient has history of CABG 3 years ago, presented with chest pain and was ruled in for non-STEMI, continue heparin drip she is chest pain- free now will put Nitropaste and plan for coronary angiogram and possible intervention tomorrow. 2. Chronic sternal wound infection: Not new has been going on for 3 years, patient would need to follow-up with surgeon DEMETRIS once we fix her acute issue.
[2023-04-28] MEDS ORDERED: NITROGLYCERIN 1 GM PKT TD ONE (20:43)
[2023-04-28] MEDS: NITROGLYCERIN 1 GM PKT TD SCH (21:22)
[2023-04-29] MEDS ORDERED: NITROGLYCERIN 1 GM PKT TD ONE ×3 (01:28→11:41)
[2023-04-29] MEDS: NITROGLYCERIN 1 GM PKT TD SCH ×3 (01:28→11:44)
[2023-04-29 04:49] LABS: Absolute Lymphocytes (CBC) 1.8 K/uL (0.7-4.9); Hematocrit 44.2 % (36.0-45.0); Lymphocytes % 22.5 % (15.3-44.8); MCV 85.4 fL (80-100); MPV 7.4 fL (7.6-11.3); Platelets 364 thou/uL (152-406); RBC Red Blood Cell Count 5.18 M/uL (3.86-4.86)
[2023-04-29 05:12] LABS: Albumin 3.2 g/dL (3.4-5.0); Bilirubin Total 0.4 mg/dL (0.2-1.0); Potassium 3.9 mEq/L (3.5-5.1); Protein, Total 8.1 g/dL (6.4-8.2)
--- NOTE | 2023-04-29 07:00 | ECHO ---
HEIGHT: 4 ft 11 in WEIGHT: 190 lb 1.6 oz DATE OF STUDY: 04/28/[address]: Basim Pardo 2-DIMENSIONAL: YES M.MODE: YES DOPPLER: YES COLOR FLOW: YES TDS: PORTABLE: YES DEFINITY: BUBBLE STUDY: DIAGNOSIS: NON ST ELEVATION MYOCARDIAL INFARCTION CARDIAC HISTORY: CATHERIZATION: SURGERY: YES PROSTHETIC VALVE: PACEMAKER: MEASUREMENTS (cm) DIASTOLIC (NORMALS) SYSTOLIC (NORMALS) IVSd 0.9 (0.6-1.2) LA Diam 3.7 (1.9-4.0) LVEF 50-55% LVIDd 3.9 (3.5-5.7) LVIDs 2.7 (2.0-3.5) %FS 31% LVPWd 1.1 (0.6-1.2) Ao Diam 2.88 (2.0-3.7) 2 DIMENSIONAL ASSESSMENT: RIGHT ATRIUM: NORMAL LEFT ATRIUM: MODERATELY DILATED RIGHT VENTRICLE: NORMAL LEFT VENTRICLE: MILD LEFT VENTRICULAR HYPERTROPHY, EJECTON FRACTION 50-55% TRICUSPID VALVE: NORMAL MITRAL VALVE: NORMAL PULMONIC VALVE: NOT WELL SEEN AORTIC VALVE: NORMAL PERICARDIAL EFFUSION: NONE AORTIC ROOT: LEFT VENTRICULAR WALL MOTION: DOPPLER/COLOR FLOW: COMMENTS: 1. MODERATELY DILATED LEFT ATRIUM 2. MILD LEFT VENTRICULAR HYPERTROPHY 3. EJECTION FRACTION 50-55% TECHNOLOGIST: DOMINICK DAVILA
--- NOTE | 2023-04-29 07:17 | P.PN ---
Date of Service: 04/29/23 Sandrita Doherty is awake and calm, she reports no chest pain at this time. Scheduled for heart cath today Nitroglycerin drip with heparin drip, blood pressure stable Glucose elevated, on sliding scale insulin ROS 10 point ROS as noted above, otherwise negative Physical Exam General: Alert, Oriented x3, Mild distress HEENT: Atraumatic, Normocephalic, PERRLA Neck: Supple, 2+ carotid pulse no bruit, JVD not distended Respiratory: Clear to auscultation bilaterally, Normal air movement Cardiovascular: No edema, Normal pulses, Regular rate/rhythm, Normal S1 S2 Capillary refill: <2 Seconds Gastrointestinal: Normal bowel sounds, Soft and benign Musculoskeletal: No clubbing, No swelling, No contractures Integumentary: No rashes, No breakdown, No significant lesion Neurological: Normal speech, Normal strength at 5/5 x4 extr, Normal tone Vitals Reviewed Problem list NSTEMI in patient with 6 vessel coronary artery bypass graft 3 years ago Medication noncompliance due to insurance difficulties Chronic Nonhealing wound to inferior area of previous sternal incision Diabetes mellitus type 2NIDDM-noncompliant CKD Assessment and Plan NSTEMI in patient with 6 vessel coronary artery bypass graft 3 years ago Medication noncompliance due to insurance difficulties consult cardiology Heparin drip, nitroglycerin drip, aspirin, and Plavix started- per Dr. Pereira N.p.o. for procedure in the a.m.- heart cath today 04/29 Troponin 1594.8/ 1373.04/5198.04/7815/8285 BNP 1290 EKG-normal sinus rhythm heart rate 69, nonspecific ST and T wave abnormalities serial EKG pending CT chest angio showing negative for pulmonary embolism ECHO Lipid panel- Triglycerides 113, cholesterol 195, LDL 132, HDL 40 Chronic Nonhealing wound to inferior area of previous sternal incision Dressed with gauze and tape Consult wound care CT chest angio reports multiple postsurgical changes including broken wires, nonunion to inferior sternum Outpatient follow-up required Diabetes mellitus type 2NIDDM- noncompliant Serum glucose 238 Accu-Check with sliding scale insulin A1c pending CKD She has been informed of CKD instructed to drink lots of water Consulting nephrology BUN/creatinine 14/0.96, GFR 82- improvement DVT PPx heparin drip Full code LOS 2 to 3 days Time Spent Managing Pts Care (In Minutes): 40 <Kristal Young - Last Filed: 04/29/23 14:38> Patient seen and examined. Plan of care discussed with Ms. Young. NSTEMI Chronic nonhealing sternal wound from previous cardiac bypass surgery 3 years ago. Status post cardiac catheterization, patient noted to have significant occlusion of subclavian artery lack of blood flow to the PERKINS. [address] Peña flow established to the PERKINS. General surgery consult for chronic nonhealing sternal wound. Aspirin and Plavix b-melanie Statin <von anderson - Last Filed: 04/29/23 18:21>
[2023-04-29] MEDS ORDERED: INSULIN REGULAR (HUMAN) 100 UNIT/ML ONE ×2 (07:53→11:39)
[2023-04-29] MEDS ORDERED: CLOPIDOGREL 75 MG TABLET ONE ×2 (07:55→14:37)
[2023-04-29] MEDS: CLOPIDOGREL 75 MG TABLET PO SCH (08:07)
[2023-04-29] MEDS: INSULIN REGULAR (HUMAN) 100 UNIT/ML SQ SCH ×4 (08:07→21:57)
--- NOTE | 2023-04-29 10:31 | P.CNS ---
Date of Consult: 04/29/23 Reason for Consult: CKD Requesting Physician: von anderson Chief Complaint: NSTEMI History of Present Illness: Liliane Quach is a 47-year-old female with past medical history of myocardial infarction status post 6 vessel CABG three years ago, diabetes mellitus- NIDDM, chronic renal insufficiency, hypertension who has been noncompliant with medication due to insurance issues and has presented to the ED with increasing chest pain for 1 week located substernal and radiating to the neck and left shoulder. On examination, her previous midline incision at inferior area has malodorous drainage and covered with a bandage. She reports not attending postoperative follow up visits and does not see the doctor regularly due to insurance issues. She stated that she should be on Plavix but has not taken it in several months. Initial blood pressure 180/108 now a nitroglycerin drip and s/p 2 doses of IV labetalol were given resulting with SBP 138 and HR 76, resp 18, Temp 98.5, Oxygen saturation 100% on RA. Laboratory evaluations Troponin 1594.8, BNP 1290, potassium 4.7, sodium 135, BUN/creatinine 14/1.12, GFR 61, serum glucose 318, no elevated white count. Dr. Fuentes consulted and requested no heparin drip at this time. Stat echo was performed pending results. On examination vitals are stable, she is alert and oriented in no acute distress. 09:41 This 47 yrs old Female presents to ER via Ambulatory with com plaints of Chest sp3 Pain. 09:41 47-year-old female with extensive past medical and cardiac history including myocardial sp3 infarction status post CABG, diabetes, chronic renal insufficiency, hy pertension who has been noncompliant with her medications since her procedures in [place] approximately 3 years ago and who is also had drainage from her's sternotomy for 3 years now presents to the ED here for 1 week history of increasing chest pain paroxysmal in nature. Patient states the pain is substernal and radiates superiorly to her neck and left shoulder. She denies any other symptoms including headache, neck pain, shortness of breath, back pain, extremity pain, epigastric pain, abdominal pain, nausea, vomiting, diarrhea, bleeding, rash, known sick contacts, travel history, drug use or recreational medication use, or any other signs or symptoms on ROS at this time. She reports that she was told by Joseph when she was a child that she has CKD. She denies NSAIDs. No difficulty with urination. Allergies No Known Allergies Allergy (Unverified 08/27/15 01:13) Home medications list reviewed: Yes Home Medications: NK [No Home Meds] 04/28/23 - Past Medical/Surgical History Diabetic: Yes -: CABG 3 yrs ago. -: HTN -: HLD -: CKD (Dr. Boswell/ Dr. Mistry) -: liver problems -: no menstrual cycle -: CABG 3 years ago. - Family History Mother History Unknown: Yes Medical History: Heart disease, Hypertension, Diabetes - Social History Alcohol use: No CD- Drugs: No Caffeine use: Yes Place of Residence: Home Review of Systems 10-point ROS is otherwise unremarkable General: Weakness, Malaise Physical Examination Temp Pulse Resp BP Pulse Ox 97.8 F 68 14 132/72 96 04/29/23 08:00 04/29/23 09:00 04/29/23 09:00 04/29/23 09:00 04/29/23 09:00 General: In no apparent distress, Oriented x3, Cooperative HEENT: Atraumatic Neck: Supple Respiratory: Clear to auscultation bilaterally, Normal air movement Cardiovascular: No edema, Regular rate/rhythm Gastrointestinal: Soft and benign, Non-distended Musculoskeletal: No clubbing, No contractures Integumentary: No rashes, No cyanosis Neurological: Normal speech Laboratory Data (last 24 hrs) 04/28/23 04/28/23 11:37 11:37 WBC 6.90 Hgb 14.0 Hct 40.8 Plt Count 347 PT 12.1 INR 1.10 Imagings Data: EXAM DESCRIPTION: CT - Chest For Pe Angio - 04/28/2023 12:25 pm CLINICAL HISTORY: Chest pain COMPARISON: None. TECHNIQUE: Dynamically enhanced axial 3 mm thick images of the chest were obtained during administration of 100 mL Isovue 370 IV contrast. Coronal and oblique reconstruction images were generated and reviewed. Exam utilizes a protocol for optimal evaluation of pulmonary arterial tree. Maximum intensity projections 3D imaging was utilized All CT scans are performed using dose optimization technique as appropriate and may include automated exposure control or mA/KV adjustment according to patient size. FINDINGS: A pulmonary embolus is not seen. A thoracic aortic aneurysm is not noted. A pleural effusion is not seen. A pericardial effusion is not seen. A lung consolidation is not present. Postsurgical changes involve the chest. Several wires for the median sternotomy are broken. An inferior right wire extends a couple centimeters into the anterior subcutaneous fat and is surrounded by inflammatory changes. An additional lower left wire also extends into the anterior subcutaneous fat several centimeters and also surrounded by inflammatory tissue. 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 Fragments are by 1 centimeter. 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 It abuts the anterior aspect of left brachiocephalic vein. Bony formation has occurred between the medial head of the left clavicle and left aspect of the manubrium forming a pseudo joint IMPRESSION: Negative for a pulmonary embolism. EXAM DESCRIPTION: Vasiliy Single View04/28/2023 9:50 am CLINICAL HISTORY: Chest pain COMPARISON: 2020 FINDINGS: The lungs appear clear of acute infiltrate. The heart is probably upper limits normal size Postsurgical changes involve the chest. IMPRESSION: No acute abnormalities displayed LEFT VENTRICULAR WALL MOTION: DOPPLER/COLOR FLOW: COMMENTS: 1. MODERATELY DILATED LEFT ATRIUM 2. MILD LEFT VENTRICULAR HYPE Conclusions/Impression: Stage I CHINYERE CKD II -No NSAIDs Hyponatremia -Encourage nutrition HTN with CKD -Monitor BP -Nitro TD -Start Bystolic qhs DM II with Hyperglycemia -RISS Hypoalbuminemia -Consider protein supplementation Hospitalist and ER notes reviewed Thank you kindly for the consultation
[2023-04-29] MEDS ORDERED: NA CHLORIDE 0.9% 500 ML ONE (13:03)
--- NOTE | 2023-04-29 13:26 | EKG ---
Test Date: 2023-04-28 Test Time: 09:30:49 Buyer Agent: JACQUES MEASUREMENT RESULTS: Intervals: Rate: 69 TX: 136 QRSD: 88 QT: 402 QTc: 430 [place]: P: 60 TX: 136 QRS: 67 T: 124 INTERPRETIVE STATEMENTS: Normal sinus rhythm Nonspecific ST and T wave abnormality Abnormal ECG Compared to ECG 08/13/2020 12:51:34 Prolonged QT interval no longer present ST (T wave) deviation still present Electronically Signed On 04-29-23 13:23:44 COMPLIANCE EXAMINER by Asher Peña
[2023-04-29] MEDS ORDERED: FENTANYL CITR 100 MCG/2 ML ONE (14:35)
[2023-04-29] MEDS ORDERED: LIDOCAINE 1% 20 ML MDV ONE (14:35)
[2023-04-29] MEDS ORDERED: TICAGRELOR 90 MG TABLET PO ONE (14:36)
[2023-04-29] MEDS ORDERED: ATROPINE SULF 1 MG/10 ML SYR IV ONE (14:36)
[2023-04-29] MEDS ORDERED: MIDAZOLAM HCL 2 MG/2 ML INJ ONE (14:36)
[2023-04-29] MEDS ORDERED: HEPARIN 10,000 UNIT/10 ML VIAL IV ONE ×2 (14:37→16:07)
[2023-04-29] MEDS ORDERED: ASPIRIN 325 MG TAB ONE (14:38)
[2023-04-29] MEDS ORDERED: HEPA 1000U/500MLS 1,000 UNIT/500 ML BAG IV ONE (14:43)
[2023-04-29] MEDS ORDERED: METOPROLOL TARTRATE 5 MG/5 ML INJ IV ONE (15:21)
[2023-04-29] MEDS ORDERED: HYDRALAZINE HCL 20 MG/ML VIAL ONE (15:22)
[2023-04-29] MEDS ORDERED: NITROGLYCERIN 0.4 MG/TAB SL PRN (18:17)
[2023-04-29] MEDS ORDERED: NITROGLYCERIN 1 GM PKT TD SCH (19:09)
[2023-04-29] MEDS ORDERED: NEBIVOLOL HCL 5 MG TAB PO SCH (21:00)
[2023-04-29] MEDS ORDERED: ATORVASTATIN 40 MG TAB PO SCH (21:00)
--- NOTE | 2023-04-30 02:44 | OP ---
Date of Procedure: 04/29/2023 Surgeon: IRMA SMITH Procedure Performed: 1.Selective coronary angiogram with bypass graft study. 2.Balloon angioplasty and stent placement of critical left subclavian artery stenosis. I used 6 x 2 9 mm balloon expandable stent Omnilink with excellent results. Indication: [id number] myocardial infarction. Access: Right femoral artery 6-Kittitian closed with StarClose. Complications: None. Bleeding: Less than 50 mL. Description Of Procedure: After risks, benefits, alternatives were explained, patient agreed to proc edure, and signed informed consent. Patient was brought into the cardiac catheterization laboratory, prepped and draped in sterile fashion. Then, I then accessed the right femoral artery using micropu ncture kit, fluoroscopy, ultrasound guidance and placed a 6-Kittitian Odessa sheath and took a 6-Frenc h JL3.5 catheter into the aortic root over a J-wire, engaged left main, took 7 views, exchanged for 6 -Kittitian JR4 catheter, engaged the RCA, SVG to RCA, SVG to OM1, SVG to OM 2, and SVG to diagonal and L SUSANNE to LAD. Took standard views. There was severe left subclavian stenosis, probably the culprit fo r the OH as the PERKINS was not getting enough blood flow. Subsequently gave systemic heparin to assure its level above 250, and I exchanged the Odessa sheath for a long 6-Kittitian Destination sheath and engaged the left subclavian artery and took [place] Advantage wire through the area of stenosis, and us ing a 6 x 40 mm balloon, lesion expanded very well and then I placed 6 x 29 mm balloon expandable radha nt, reducing the stenosis to 0% and excellent blood flow to the PERKINS at the end of the procedure. Th en removed the wire and the sheath and StarClose was used for closure of the hemostasis. Findings: 1.Left main diffusely disease 60%. 2.LAD; proximal 80%, mid has multiple tandem lesion ranging between 80% and 90% stenosis. Diagonal branch also has significant disease approximately 70% to 80% stenosis. 3.Left circumflex; there is EXPLOSIVE EXPERT 100% occluded proximally. 4.RCA has diffuse 90% stenosis and then becomes EXPLOSIVE EXPERT. Graft Study: 1.Patent SVG graft to RCA. 2.Patent SVG graft to OM1. 3.Patent SVG graft to OM2. 4.Patent SVG graft to diagonal. 5.Patent PERKINS to LAD. On peripheral angiogram, there was severe proximal left subclavian artery stenosis, status post succe ssful intervention as above. Conclusion: Severe chinik coronary artery disease with patent PERKINS to LAD, SVG graft to diagonal, SV G graft to OM1, and SVG graft to OM2 as well as SVG graft to RCA. However, with severe left subclavi an artery stenosis, status post successful angioplasty and stent placement. Plan: Aspirin, Plavix, high-dose statin, and close followup post discharge. SR/MODL Voice ID: [id number] Report ID: [id number]
[2023-04-30 04:56] LABS: Absolute Lymphocytes (CBC) 1.3 K/uL (0.7-4.9); Hematocrit 37.5 % (36.0-45.0); Lymphocytes % 18.2 % (15.3-44.8); MCV 84.7 fL (80-100); MPV 7.4 fL (7.6-11.3); Platelets 316 thou/uL (152-406); RBC Red Blood Cell Count 4.42 M/uL (3.86-4.86)
[2023-04-30 05:28] LABS: Potassium 4.3 mEq/L (3.5-5.1)
[2023-04-30] MEDS: INSULIN REGULAR (HUMAN) 100 UNIT/ML SQ SCH ×4 (07:30→17:35)
[2023-04-30] MEDS ORDERED: ASPIRIN 81 MG CHEWABLE TABLET ONE (08:12)
[2023-04-30] MEDS ORDERED: INSULIN REGULAR (HUMAN) 100 UNIT/ML ONE ×3 (08:12→17:20)
[2023-04-30] MEDS ORDERED: CLOPIDOGREL 75 MG TABLET ONE (08:12)
[2023-04-30] MEDS: CLOPIDOGREL 75 MG TABLET PO SCH (08:16)
[2023-04-30] MEDS ORDERED: ASPIRIN 81 MG CHEWABLE TABLET PO SCH (09:00)
[2023-04-30 11:18] VITALS: TEMP 98.2
--- NOTE | 2023-04-30 15:12 | CON ---
Date of Consultation: 04/30/2023 Diagnosis: Sternal wound. History Of Present Illness: This is a case of a 47-year-old patient who had a 6 vessel bypass about 3 years ago. I am trying to find out where she had that done. She stated that she went to [facility] and from there, they put her after they find out of an CA in an ambulance and sent her to [place] where she had her surgery done. She has not followed with them since 3 years ago. She developed a wound on the lower sternum region and that wound, patient claims has been there, unable to be close d. At 1 point, she claims she probably saw wires in that area, although she cannot see at this momen t. There is a granuloma present to an open wound that goes deep into the surgical area. She says fo r 3 years it has been like that and she has not been able to address the issue properly despite antib iotics. She was here because she was having some chest pain. Cardiology is doing some procedures an d she is about to be discharged home, but they consulted me for the wound in the sternum. Past Medical History: Obviously, cardiac disease, hypertension. Past Surgical History: 6-vessel bypass. Allergies: REVIEWED. Medications: Reviewed, although she claimed that she has not taken the medication properly. She mario s not remember the name of them. Social History: She does not smoke, does not drink alcohol. Review of Systems: See HPI. No chest pain at this moment. Physical Examination: General: Patient is awake and alert. HEENT: Pupils are equal, reactive. Chest: Bilateral breath sounds. Abdomen: Soft and depressible. Integumentary: Shows a lower sternum open wound is about 1 x 1.5 cm with granulation tissue from abdirashid t area. I did not explore the wound, but this started just nearby. Although, I do not see any forei gn body, I cannot rule out specially when the CAT scan revealed that there is a wire from the sternum nearby. Laboratory Data: Blood work reviewed. 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 At this moment , probably foreign body is not allowing this to close properly. I believe this patient should be see n at least as an outpatient by a thoracic surgeon where not only they may have to remove the foreign body but explore the wound and probably do lavage and probably long-term antibiotics if the bone is i nvolved. Once the thoracic surgeon addressed the issue and removed the foreign body, then that myles n [facility] and we will be happy to address and help her heal the wound on ce the area is addressed and specialty is looking at that. She stated that she already has an appoin tment with them, but she does not recall the name. JENARO/GAMAL Voice ID: [id number] Report ID: [id number]
--- NOTE | 2023-04-30 15:44 | P.PN ---
Date of Service: 04/30/23 Sandrita Momin is feeling much better this morning, she reports ambulating to the bathroom and being careful while walking She reports her sisters will help her pay for her medications and help her be compliant. ROS 10 point ROS as noted above, otherwise negative Physical Exam General: AAO x3, Calm and relaxed HEENT: Atraumatic, Normocephalic, PERRLA Neck: Supple, 2+ carotid pulse no bruit, JVD not distended Respiratory: Clear to auscultation bilaterally, Normal air movement Cardiovascular: No edema, Normal pulses, Regular rate/rhythm, Normal S1 S2 Capillary refill: <2 Seconds Gastrointestinal: Normal bowel sounds, Soft and benign, nontender Musculoskeletal: No clubbing, No swelling, No contractures Integumentary: No rashes, nonhealing wound to sternal incision Neurological: Normal speech, Normal strength at 5/5 x4 extr, Normal tone Vitals Reviewed Problem list NSTEMI in patient with 6 vessel coronary artery bypass graft 3 years ago Medication noncompliance due to insurance difficulties Chronic Nonhealing wound to inferior area of previous sternal incision Diabetes mellitus type 2NIDDM-noncompliant CKD Stage 1 CHINYERE Assessment and Plan NSTEMI in patient with 6 vessel coronary artery bypass graft 3 years ago Medication noncompliance due to insurance difficulties Consult cardiology (04/28) Heparin drip, nitroglycerin drip, aspirin, and Plavix started- per Dr. Pereira Heart healthy diet Troponin 1594.8/ 1373.04/5198.04/7815/8285 BNP 1290 EKG-normal sinus rhythm heart rate 69, nonspecific ST and T wave abnormalities serial EKG pending CT chest angio showing negative for pulmonary embolism ECHO Lipid panel- Triglycerides 113, cholesterol 195, LDL 132, HDL 40 Status post cardiac catheterization, patient noted to have significant occlusion of subclavian artery lack of blood flow to the PERKINS. Stented by Dr. Peña flow established to the PERKINS. Aspirin, Plavix, b-melanie, Statin Chronic Nonhealing wound to inferior area of previous sternal incision Dressed with gauze and tape Consult wound care CT chest angio reports multiple postsurgical changes including broken wires, nonunion to inferior sternum Outpatient follow-up required General surgery consult for chronic nonhealing sternal wound.- Dr. Singletary Diabetes mellitus type 2NIDDM- noncompliant Serum glucose 233 Accu-Check with sliding scale insulin A1c 11.1 lantus added Stage 1 CHINYERE CKD She has been informed of CKD instructed to drink lots of water Consulting nephrology BUN/creatinine 11/0.79, GFR 93- improvement no NSAIDs DVT PPx SCD s/p PCI Full code LOS 2 to 3 days Time Spent Managing Pts Care (In Minutes): 35 <HectorKristal - Last Filed: 04/30/23 15:56> Patient seen and examined. Plan of care discussed with Ms. Young NSTEMI Coronary artery disease Chronic nonhealing sternal wound related to CABG. Stable with stable vitals. General surgery input appreciated. Dr. Singletary recommended outpatient follow- up with cardiothoracic surgeon to address the wound and broken sternotomy wires. Patient is currently asymptomatic with stable vitals and deemed stable for disch arge. <von anderson - Last Filed: 05/01/23 17:23>
[2023-04-30] MEDS ORDERED: INSULIN GLARGINE 100 UNIT/ML SQ SCH (16:00)
[2023-04-30 17:13] VITALS: O2SAT 94
[2023-04-30] MEDS ORDERED: INSULIN GLARGINE 100 UNIT/ML SQ ONE (17:18)
--- NOTE | 2023-04-30 18:17 | P.DS ---
Admission Date: 04/29/23 Discharge Date: 04/30/23 Disposition: ROUTINE DISCHARGE Discharge Condition: FAIR Reason for Admission: NSTEMI Brief History of Present Illness: Liliane Quach is a 47-year-old female with past medical history of myocardial infarction status post 4 vessel CABG three years ago, diabetes mellitus- NIDDM, chronic renal insufficiency, hypertension who has been noncompliant with medication due to insurance issues presented to the ED with increasing chest pain for 1 week, pain located substernal and radiating to the neck and left shoulder. On examination, her previous midline incision at inferior area has ma lodorous drainage and covered with a bandage. She reported not attending postoperative follow up visits and does not see the doctor regularly due to insurance issues. She stated that she should be on Plavix but has not taken it in several months. Initial blood pressure 180/108 for which nitroglycerin drip was started and 2 doses of IV labetalol were given resulting with SBP 138 and HR 76, resp 18, Temp 98.5, Oxygen saturation 100% on RA. Laboratory evaluations Troponin 1594.8, BNP 1290, potassium 4.7, sodium 135, BUN/creatinine 14/1.12, GFR 61, serum glucose 318, no elevated white count. Dr. Peña consulted and requested patient to the hospital for further evaluation and management. CTA chest reported no pulmonary embolus. A thoracic aortic aneurysm is not noted. A pleural effusion is not seen. A pericardial effusion is not seen. A lung consolidation is not present. Postsurgical changes involve the chest. Several wires for the median sternotomy are broken. An inferior right wire extends a couple centimeters into the anterior subcutaneous fat and is surrounded by inflammatory changes. An additional lower left wire also extends into the anterior subcutaneous fat several centimeters and also surrounded by inflammatory tissue. 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 Fragments are by 1 centimeter. 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 It abuts the anterior aspect of left brachiocephalic vein. Bony formation has occurred between the medial head of the left clavicle and left aspect of the manubrium forming a pseudo joint Hospital Course: Patient was admitted to the medical floor and the following medical problems addressed: NSTEMI in patient with 4 vessel coronary artery bypass graft 3 years ago Medication noncompliance due to insurance difficulties Patient treated with Heparin drip, nitroglycerin drip, aspirin, and Plavix Troponin 1594.8/ 1373.04/5198.04/7815/8285 EKG-normal sinus rhythm heart rate 69, nonspecific ST and T wave abnormalities Lipid panel- Triglycerides 113, cholesterol 195, LDL 132, HDL 40 Status post cardiac catheterization, patient noted to have patent PERKINS to LAD but significant occlusion of left subclavian artery with decreased blood flow to the PERKINS. Subclavian artery was stented by Dr. Peña with flow established to the PERKINS. And placed on aspirin, Plavix, b-melanie, Statin. Monitor for another 24 hours post cardiac cath She has been asymptomatic with stable vitals and deemed stable for discharge. 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 Singletary who recommended outpatient follow-up with a cardiothoracic surgeon as patient may need those broken sternotomy wires removed and nonunion sternal bones addressed. Patient informed it is important to follow-up with her cardiac thoracic surgeon made aware she can have complications like osteomyelitis, mediastinitis and infection of the organs in the thoracic cavity including the heart. Patient voiced understanding Diabetes mellitus type 2NIDDM- noncompliant Serum glucose 233 Accu-Check with sliding scale insulin A1c 11.1 Patient has been noncompliant with medications. She is discharged with Novolin 70/30 for glucose management at home. Stage [address] Boswell saw patient and assisted with management. CHINYERE resolved Vital Signs/Physical Exam: Temp Pulse Resp BP Pulse Ox 98.2 F 71 17 156/65 H 95 04/30/23 16:00 04/30/23 17:00 04/30/23 17:00 04/30/23 17:00 04/30/23 17:00 General: Alert, In no apparent distress, Oriented x3 HEENT: Mucous membr. moist/pink Neck: Supple, JVD not distended Respiratory: Clear to auscultation bilaterally, Normal air movement Cardiovascular: Regular rate/rhythm, Normal S1 S2 Gastrointestinal: Normal bowel sounds, Soft and benign, Non-distended Neurological: Normal strength at 5/5 x4 extr Laboratory Data at Discharge: WBC 7.30 thou/uL (4.3-10.9) 04/30/23 04:40 Hgb 12.8 g/dL (12.0-15.0) D 04/30/23 04:40 Hct 37.5 % (36.0-45.0) 04/30/23 04:40 Plt Count 316 thou/uL (152-406) 04/30/23 04:40 PT 12.1 SECONDS (9.5-12.5) 04/28/23 11:37 INR 1.10 04/28/23 11:37 APTT 58.9 SECONDS (24.3-36.9) H 04/29/23 04:25 Sodium 134 mEq/L (136-145) L 04/30/23 04:40 Potassium 4.3 mEq/L (3.5-5.1) 04/30/23 04:40 BUN 11 mg/dL (7-18) 04/30/23 04:40 Creatinine 0.79 mg/dL (0.55-1.02) 04/30/23 04:40 Glucose 233 mg/dL (74-106) H 04/30/23 04:40 Magnesium 2.0 mg/dL (1.6-2.4) 04/28/23 09:50 Total Bilirubin 0.4 mg/dL (0.2-1.0) 04/29/23 04:25 AST 45 U/L (15-37) H 04/29/23 04:25 ALT 29 U/L (13-56) 04/29/23 04:25 Alkaline Phosphatase 122 U/L (45-117) H 04/29/23 04:25 Triglycerides 113 mg/dL (<150) 04/28/23 17:03 Cholesterol 195 mg/dL (<200) 04/28/23 17:03 HDL Cholesterol 40 mg/dL (40-60) 04/28/23 17:03 Cholesterol/HDL Ratio 4.88 04/28/23 17:03 Home Medications: Alcohol Antiseptic Pads [Alcohol Prep Pads] 1 each TP DAILY #1 box 04/30/23 Aspirin Chewable [Aspirin Chewable*] 81 mg PO DAILY #30 tab.chew 04/30/23 Atorvastatin Calcium [Lipitor] 40 mg PO BEDTIME #30 tab 04/30/23 Bacitracin [Bacitracin Top Oint] 1 applic TOP BID #1 ea 04/30/23 Blood Sugar Diagnostic [Blood Glucose Test Strip] 1 each MC DAILY #30 strip 04/30/23 Blood-Glucose Meter [Blood Glucose Monitoring] 1 each MC DAILY #1 kit 04/30/23 Clopidogrel Bisulfate [Plavix*] 75 mg PO DAILY #30 tab 04/30/23 Insulin NPH Hum/Reg Insulin Hm [Novolin 70-30 Flexpen] 20 unit SQ BID #15 ml 04/30/23 Lancets 1 each MC DAILY #30 ea 04/30/23 Nebivolol HCl [Bystolic*] 5 mg PO BEDTIME #30 tab 04/30/23 Pen Needle, Diabetic [Pen Needle] 1 each MC BID #1 box 04/30/23 New Medications: Alcohol Antiseptic Pads [Alcohol Prep Pads] 1 each TP DAILY #1 box Aspirin Chewable [Aspirin Chewable*] 81 mg PO DAILY #30 tab.chew Bacitracin [Bacitracin Top Oint] 1 applic TOP BID #1 ea Blood-Glucose Meter [Blood Glucose Monitoring] 1 each MC DAILY #1 kit Blood Sugar Diagnostic [Blood Glucose Test Strip] 1 each MC DAILY #30 strip Nebivolol HCl [Bystolic*] 5 mg PO BEDTIME #30 tab Lancets 1 each MC DAILY #30 ea Atorvastatin Calcium [Lipitor] 40 mg PO BEDTIME #30 tab Insulin NPH Hum/Reg Insulin Hm [Novolin 70-30 Flexpen] 20 unit SQ BID #15 ml Pen Needle, Diabetic [Pen Needle] 1 each MC BID #1 box Clopidogrel Bisulfate [Plavix*] 75 mg PO DAILY #30 tab Physician Discharge Instructions: Please you will need to follow-up with your cardiothoracic surgeon who performed your bypass surgery to evaluate your chest wound and remove broken sternotomy wires used to secure your breastbone, and debride your wound as needed. Your chest wound can get infected but can spread to the bones of your chest wall and if untreated can involve your heart and organs in the chest cavity so it is important you follow-up with your surgeon. Please dress your wound twice a day with bacitracin cream prescribed. Please be compliant with your medications because your arteries can clog again if you do not take the prescribed medications. Diet: ADA Activity: Ad sylvester Followup: NONE,NONE [Primary Care Provider] - 1-2 Weeks Time spent managing pt's care (in minutes): 36
[2023-04-30 18:35] VITALS: BP 173/74
[2023-05-01] MEDS ORDERED: INSULIN GLARGINE 100 UNIT/ML SQ SCH (09:00)
== END 2023-04-30 19:00 | disposition home or self-care (01) | DRG 322 ==
LOC: ER 09:21 → ERHOLD 12:45 → 3RD-ICU 15:09 → OBSVTOIN 04-29 16:16
PROVIDERS: ADMIT Internal Medicine; ATTEND Internal Medicine
PROC: 02703DZ Dilation of Coronary Artery, One Artery with Intraluminal Device, Percutaneous Approach (ICD-10-PCS; principal; 2023-04-29)
PROC: 4A023N7 Measurement of Cardiac Sampling and Pressure, Left Heart, Percutaneous Approach (ICD-10-PCS; 2023-04-29)
PROC: B2131ZZ Fluoroscopy of Multiple Coronary Artery Bypass Grafts using Low Osmolar Contrast (ICD-10-PCS; 2023-04-29)
DX: I21.4 Non-ST elevation (NSTEMI) myocardial infarction (principal); E87.1 Hypo-osmolality and hyponatremia; N17.9 Acute kidney failure, unspecified; I16.0 Hypertensive urgency; I12.9 Hypertensive chronic kidney disease with stage 1 through stage 4 chronic kidney disease, or unspecified chronic kidney disease; N18.2 Chronic kidney disease, stage 2 (mild); E11.22 Type 2 diabetes mellitus with diabetic chronic kidney disease; E11.65 Type 2 diabetes mellitus with hyperglycemia; E88.09 Other disorders of plasma-protein metabolism, not elsewhere classified; I25.10 Atherosclerotic heart disease of native coronary artery without angina pectoris; I25.2 Old myocardial infarction; T81.89XA Other complications of procedures, not elsewhere classified, initial encounter; Z95.1 Presence of aortocoronary bypass graft; Z91.148 Patient's other noncompliance with medication regimen for other reason; Z87.891 Personal history of nicotine dependence
CPT/HCPCS: 36415; 37236; 71045; 71275; 76937; 80048; 80053; 80061; 80076; 82947; 83036; 83735; 83880; 84484; 85025; 85610; 85730; 93005; 93306; 93455; 96374; 96375; 99152; 99153; 99285; C1725; C1769; C1893; G0378; J0360; J0461; J1644; J1815; J2001; J2250; J2405; J3010; J7040; Q9967